=== PATIENT | female | born 1955 | race Two or more races ===

== ENCOUNTER 2019-03-04 03:00 | Inpatient (IN) | payer OTHER ==
[~2019-03-04] VITALS: Ht 157.5 cm; Wt 46.3 kg
[2019-03-04] VITALS (76 sets, daily range): BP systolic 55–139; BP diastolic 28–92
--- NOTE | 2019-03-04 03:03 | NUR ---
PT BIBRA39 FROM HOME C/O SOB X1 DAY. +WEAKNESS, PER RA, PT 88% ROOM AIR, BS 97, PT IS AAOX3, NOTED RESPIRATORY DISTRESS, HOOKED TO 02 VIA NON-REBREATHER MASK AND MONITOR, KEPT RESTED AND COMFORTABLE, WILL CONTINUE TO MONITOR.
--- NOTE | 2019-03-04 03:24 | NUR ---
DR. BRITT AT BEDSIDE FOR EVAL.
[2019-03-04] MEDS ORDERED: MYCO500T PO (03:26)
[2019-03-04] MEDS ORDERED: ALBU18HF2 INH (03:31)
[2019-03-04] MEDS ORDERED: CHOL20004 PO (03:31)
[2019-03-04] MEDS ORDERED: SODI650T PO (03:31)
[2019-03-04] MEDS ORDERED: CYCL30DR OP (03:31)
[2019-03-04] MEDS ORDERED: METO-356 PO (03:31)
[2019-03-04] MEDS ORDERED: FEBU40TA PO (03:31)
[2019-03-04] MEDS ORDERED: DILT-32 PO (03:31)
[2019-03-04] MEDS ORDERED: DILT180C66 PO (03:31)
[2019-03-04] MEDS ORDERED: PANT40TA4 PO (03:31)
[2019-03-04] MEDS ORDERED: APIX2.5T PO (03:31)
[2019-03-04] MEDS ORDERED: ATOR20TA PO (03:31)
--- NOTE | 2019-03-04 03:32 | NUR ---
RT AT BEDSIDE FOR ABG AND BIPAP SET UP.
[2019-03-04] MEDS ORDERED: DARB25DI SUBCUT (03:40)
[2019-03-04] MEDS ORDERED: PRED5TAB48 PO (03:40)
[2019-03-04] MEDS ORDERED: DEXTROSE 50%-WATER 50 ML DISP.SYRIN ONE (03:42)
[2019-03-04] MEDS ORDERED: DEXTROSE 50%-WATER 50 ML DISP.SYRIN IV ONE (04:00)
[2019-03-04] MEDS ORDERED: PIPERACILLIN /TAZOBACTAM 3.375 G in IV D5W 50 ML IV ONE (04:30)
[2019-03-04] MEDS ORDERED: VANCOMYCIN 1 GM in IV D5W 250 ML IV ONE (04:30)
[2019-03-04] MEDS ORDERED: IV NS 0.9% 1,000 ML BAG IV ONE ×2 (04:30)
[2019-03-04 04:32] LABS: CALCIUM, SERUM 7.1 mg/dL (8.5-10.1); POTASSIUM 4.2 mmol/L (3.5-5.1)
[2019-03-04 04:33] LABS: ALBUMIN 2.3 g/dL (3.4-5.0); BILIRUBIN,DIRECT 0.7 mg/dL (0.0-0.2); BILIRUBIN,TOTAL 1.2 mg/dL (0.2-1.0); CREATININE 1.6 mg/dL (0.6-1.3)
[2019-03-04] MEDS ORDERED: PIPERACILLIN /TAZOBACTAM 3.375 G VIAL IV ONE (04:35)
[2019-03-04 04:41] LABS: HEMATOCRIT 32 % (33-45); HEMOGLOBIN 9.7 g/dL (11.5-14.8); LYMPHOCYTES % (AUTO) 6.8 % (20.0-44.0); MEAN CORPUSCULAR HGB CONC 31 g/dl (31.0-36.0); MEAN CORPUSCULAR VOLUME 88 fL (82-100); MONOCYTES % (AUTO) 2.3 % (2.0-12.0); NEUTROPHILS % (AUTO) 90.5 % (43.0-81.0); PLATELET COUNT (AUTO) 177 /CMM (150-450); RED BLOOD CELL COUNT(AUTO) 3.56 MIL/uL (4.0-5.2); WHITE BLOOD COUNT (AUTO) 12.9 K/uL (4.3-11.0)
[2019-03-04] MEDS ORDERED: ALBUMIN 25% 50 ML IV ONE (04:41)
[2019-03-04 04:42] LABS: BASOPHILS % (AUTO) 0.4 % (0.0-2.0)
[2019-03-04] MEDS ORDERED: ALBUMIN 25% 12.5 GM/50 ML BOTTLE IV ONE (05:00)
--- NOTE | 2019-03-04 05:00 | NUR ---
WAGONER CATH INSERTED, URINE OUTPUT 300ML.
[2019-03-04] MEDS ORDERED: VANCOMYCIN 1 GM VIAL ONE (05:29)
[2019-03-04] MEDS ORDERED: NOREPINEPHRINE 4 MG/4 ML AMPUL IV ONE (05:29)
[2019-03-04] MEDS ORDERED: NOREPINEPHRINE 8 MG in IV D5W 500 ML IV ONE (05:30)
--- NOTE | 2019-03-04 05:43 | NUR ---
EPIC PANEL PAGED
--- NOTE | 2019-03-04 05:50 | NUR ---
RT AT BEDSIDE FOR REPEAT ABG.
--- NOTE | 2019-03-04 05:55 | NUR ---
PT IS PLACED ON A WARMING BLANKET.
--- NOTE | 2019-03-04 06:00 | NUR ---
PREP PATIENT FOR INTUBATION.
--- NOTE | 2019-03-04 06:05 | NUR ---
RT AT BEDSIDE FOR INTUBATION AND MECH VENT SET UP.
[2019-03-04] MEDS ORDERED: PROPOFOL 100 ML ONE (06:06)
--- NOTE | 2019-03-04 06:10 | NUR ---
ETOMIDATE 20MG IVP GIVEN VERBAL ORDERED BY .
--- NOTE | 2019-03-04 06:12 | NUR ---
SUCCINYLCHOLINE 50MG IVP GIVEN VERBAL ORDERED BY .
--- NOTE | 2019-03-04 06:13 | NUR ---
INTUBATION DONE, ET SIZE 7.5 AND 22 AT THE LIP, POSITIVE COLOR CHANGE.
--- NOTE | 2019-03-04 06:25 | NUR ---
SENIOR CYTOGENETIC TECHNOLOGIST AT BEDSIDE FOR XRAY.
[2019-03-04] MEDS ORDERED: ACETAMINOPHEN 650 MG/SUPP.RECT RC PRN (06:30)
[2019-03-04] MEDS ORDERED: ONDANSETRON HCL/PF 4 MG/2 ML VIAL IVP PRN (06:30)
--- NOTE | 2019-03-04 06:39 | NUR ---
CLAYTON (DAUGHTER) CONTACT INFORMATION: [phone]
--- NOTE | 2019-03-04 06:39 | NUR ---
PT ORALLY INTUBATED WITH 7.5 ETT AT 20CM ON THE LIP. BREATH SOUNDS EQUAL BILAT. TUBE SECURE AND PATENT. SX DONE. MODERATE AMOUNT OF PINK FROTHY SECRETIONS. PT ON MECHANICAL VENTILATION WITH NOTED SETTINGS AC 16, 450, 100% +5 AND APPEARS TO BE TOLERATING WELL. NO ADVERSE REACTION, NO SOB NOTED AT THIS TIME. VENT PLUGGED INTO RED OUTLET WHEELS LOCKED. AMBU BAG AT BEDSIDE. WILL CONTINUE TO MONITOR. Addendum: 03/04/19 at 0644 by DANIS BAUTISTA RT Amended: Links added.
--- NOTE | 2019-03-04 06:53 | NUR ---
PROPOFOL IV STARTED TITIRATE TO EFFECT.
--- NOTE | 2019-03-04 07:19 | NUR ---
REPORT GIVEN TO RN CYNDY FOR CHELLE, WITH ONGOING LEVOPHED AND PROPOFOL IV.
--- NOTE | 2019-03-04 07:40 | NUR ---
REPORT RECEIVED FROM ANDIA HINES RN. RT AT BEDSIDE FOR ABG POST INTUBATION.
[2019-03-04] MEDS ORDERED: ERGO500014 PO (07:42)
[2019-03-04] MEDS ORDERED: DILT30TA14 PO (07:42)
[2019-03-04] MEDS ORDERED: CYCL25CA6 PO (07:42)
--- NOTE | 2019-03-04 07:46 | NUR ---
PT. RECEIVED ON VENT SUPPORT VIA ET TUBE SIZE 7.5 SECURED @ 21 CM [id number]-[id number], WITH PARAMETERS BELOW: AC 16 VT 450 ML FIO2 100% PEEP +5 BREATH SOUNDS CLEAR BILATERAL, SUCTIONED SCANT CLEAR WATERY SECRETIONS. VENT ALARMS ON AND FUNCTIONING. WITH JACOBG @ BEDSIDE. Addendum: 03/04/19 at 0821 by YESSENIA PHILLIPS RT Amended: Links added.
--- NOTE | 2019-03-04 08:10 | NUR ---
transferred to ICU, ACLS guidelines followed - monitored - RN, RT, and EMT
--- NOTE | 2019-03-04 08:10 | NUR ---
NOTE: Intravenous end time: Propofol drip - infusing while transfer to ICU
--- NOTE | 2019-03-04 08:17 | NUR ---
PT. TRANSFERRED FROM ER#8 TO ICU 260 [facility] WITH NO VENTILATOR PARAMETERS ORDER. VENT PLUGGED INTO RED OUTLET WITH AMBUBAG @ BEDSIDE. Addendum: 03/04/19 at 0823 by YESSENIA PHILLIPS RT Amended: Links added.
[2019-03-04] MEDS ORDERED: FEE EMEERGENCY 1 MIN EA MC ONE (08:26)
[2019-03-04] MEDS ORDERED: ETOMIDATE 2 MG/ML VIAL IV ONE (08:26)
[2019-03-04] MEDS ORDERED: FEE PK DOSING 1 MIN EA MC ONE (08:40)
[2019-03-04] MEDS ORDERED: PANTOPRAZOLE 40 MG VIAL IV SCH (09:00)
[2019-03-04] MEDS ORDERED: MYCOPHENOLATE MOFETIL HCL IV SCH (09:00)
[2019-03-04] MEDS ORDERED: D5W IV SCH (09:00)
[2019-03-04] MEDS: ALLOPURINOL 100 MG TABLET GT SCH (09:00)
--- NOTE | 2019-03-04 09:00 | NUR ---
RN INITIAL NOTES 0830 RECEIVED PT FROM ER. PT INTUBATED, ON VENT. NO RESPIRATORY DISTRESS NOTED. NO SOB NOTED. NO SIGNS OF PAIN NOTED. PT SEDATED. ON DIPRIVAN AT 40MCG/KG/MIN. PT ON LEVOPHED AT 20MCG/MIN. WILL CLOSELY MONITOR BP. IV LINES IN PLACE. AWAITING FOR PICC INSERTION. FC IN PLACE, CLOUDY YELLOW URINE NOTED. NO HEMATURIA NOTED. RIVERA HARKINS DNP AWARE OF ADMISSION. AWAITING FOR ORDERS. 0900 SEEN AND EXAMINED BY DR TELLO. AWARE OF PT'S CONDITION, LAB VALUES, ABG AND IMAGING RESULT. ADJUSTED VENT SETTINGS. ORDERED ECHO AND BLE VENOUS DOPPLER. WILL MONITOR
[2019-03-04] MEDS: FAMOTIDINE/PF INJ 20 MG/2 ML VIAL IV SCH ×2 (09:59→16:33)
[2019-03-04] MEDS ORDERED: prednisoLONE 5 MG TABLET GT SCH (10:00)
[2019-03-04] MEDS ORDERED: PredniSONE SOLUTION 5 MG/5 ML UDC GT SCH (10:00)
[2019-03-04] MEDS ORDERED: predniSONE 5 MG TABLET PO SCH (10:00)
--- NOTE | 2019-03-04 11:00 | NUR ---
RN NOTES SEEN AND EXAMINED BY RIVERA HARKINS DNP. PT INTUBATED AND SEDATED. ON DIPRIVAN AND LEVOPHED. TITRATED ACCORDINGLY. Addendum: 03/04/19 at 1456 by YFN MACE RN CONTINUATION... 1130 RIVERA AWARE OF LAB VALUES: WBC 12.9, BUN 34, CREA 1.6. LACTIC 4.5 FROM 4.8, BNP [id number]. RIVERA PLACED RIJ TLC, PLACEMENT CONFIRMED BY CXR. CONNECTED ON CVP, READING AT 7. WILL CONTINUE TO MONITOR
[2019-03-04] MEDS: NOREPINEPHRINE 16 MG in IV D5W 500 ML IV PRN ×2 (11:22→18:57)
[2019-03-04] MEDS ORDERED: DEXAMETHASONE SOD PHOSPHATE 10 MG/ML VIAL IV STA (11:37)
[2019-03-04] MEDS: PROPOFOL 100 ML IV PRN ×2 (11:49→18:21)
[2019-03-04] MEDS: HYDROCORTISONE SOD SUCCINATE 100 MG/2 ML VIAL IV SCH ×2 (12:36→16:33)
[2019-03-04] MEDS ORDERED: PIPERACILLIN /TAZOBACTAM 3.375 G in IV D5W 100 ML IV SCH (13:00)
[2019-03-04 13:02] LABS: ABG BASE EXCESS -13.3 mmol/L; ABG OXYGEN SATURATION 90.6 % (92.0-98.5); ABG PCO2 28.5 mmHg (35.0-45.0); ABG PH 7.259 (7.350-7.450); ABG PO2 71.3 mmHg (75.0-100.0); AaDO2 469.2 mmHg; COHb 0.6 % (0.5-1.5); MetHb 0.2 % (0.0-1.5); O2Hb 89.9 % (94.0-97.0); PEEP,BG 8 cm H2O; SITE, ABG Right Radial; VT, ABG 500 mL
[2019-03-04 13:03] LABS: ABG BASE EXCESS -12.9 mmol/L; ABG OXYGEN SATURATION 87.7 % (92.0-98.5); ABG PCO2 43.6 mmHg (35.0-45.0); ABG PH 7.158 (7.350-7.450); ABG PO2 72.1 mmHg (75.0-100.0); AaDO2 597.3 mmHg; COHb 0.7 % (0.5-1.5); MetHb 0.1 % (0.0-1.5); PEEP,BG 8 cm H2O; SITE, ABG Right Radial; VT, ABG 450 mL
[2019-03-04 13:03] LABS: ABG BASE EXCESS -12.7 mmol/L; ABG OXYGEN SATURATION 88.1 % (92.0-98.5); ABG PCO2 29.2 mmHg (35.0-45.0); ABG PH 7.268 (7.350-7.450); ABG PO2 67.7 mmHg (75.0-100.0); AaDO2 616.1 mmHg; COHb 0.7 % (0.5-1.5); MetHb 0.3 % (0.0-1.5); O2Hb 87.2 % (94.0-97.0); PEEP,BG 8 cm H2O; SITE, ABG Left Radial; VENT MODE, BG ST
[2019-03-04 13:03] LABS: ABG BASE EXCESS -10.4 mmol/L; ABG OXYGEN SATURATION 64.1 % (92.0-98.5); ABG PCO2 30.1 mmHg (35.0-45.0); ABG PH 7.308 (7.350-7.450); ABG PO2 37.1 mmHg (75.0-100.0); AaDO2 645.8 mmHg; COHb 1.2 % (0.5-1.5); MetHb 0.4 % (0.0-1.5); O2Hb 63.1 % (94.0-97.0); SITE, ABG Left Radial; VENT MODE, BG NON REBREATHER
[2019-03-04] MEDS: MICAFUNGIN SODIUM 100 MG in IV NS 0.9% 100 ML IV SCH (13:09)
[2019-03-04] MEDS: LEVOFLOXACIN (250MG) 250 MG TABLET PO SCH (14:23)
[2019-03-04] MEDS: SULFAMETHOXAZOLE/TRIMETHOPRIM 5 ML in IV D5W 250 ML IV SCH ×2 (14:30→23:40)
--- NOTE | 2019-03-04 14:30 | NUR ---
RN NOTES RIVERA HARKINS,HUDSON NOTIFIED OF BILATERAL VENOUS DOPPLER RESULT, POSITIVE DVT ON BILATERAL FEMORAL AND SAPHENOUS VEIN. HEPARIN DRIP ORDERED. WILL FOLLOW PROTOCOL.
[2019-03-04 15:22] LABS: ABG OXYGEN SATURATION 92.4 % (92.0-98.5); ABG PCO2 28.6 mmHg (35.0-45.0); ABG PH 7.308 (7.350-7.450); ABG PO2 73.8 mmHg (75.0-100.0); AaDO2 466.6 mmHg; COHb 0.5 % (0.5-1.5); MetHb 0.2 % (0.0-1.5); O2Hb 91.8 % (94.0-97.0); PEEP,BG 8 cm H2O; SITE, ABG Right Radial; VT, ABG 500 mL
[2019-03-04] MEDS: HEPARIN INFUSION/D5W 500 ML IV PRN (16:02)
[2019-03-04] MEDS: MYCOPHENOLATE MOFETIL SUSP 500 MG/2.5 ML UDC GT SCH (16:34)
--- NOTE | 2019-03-04 18:50 | NUR ---
RN CLOSING NOTES PT REMAINS INTUBATED, ON VENT. ON DIPRIVAN AND LEVOPHED, TITRATED ACCORDINGLY. ON HEPARIN DRIP, NEXT PTT AT 2145. KEPT CLEAN AND DRY. REPOSITIONED Q2. KEPT BLE ELEVATED. WILL ENDORSE FOR CONTINUITY OF CARE.
--- NOTE | 2019-03-04 19:00 | NUR ---
RECEIVED PT IN NO ACUTE DISTRESS IN BED. PT IS SEDATED BUT WITHDRAWS TO PAINFUL STIMULI. PT IS ON O2 VIA MECHANICAL VENTILATOR THROUGH ETT TUBE. ETT IS 7.5/22 AND TOLERATING VENT SETTING WELL @ AC 26 TV 500 FIO2 80 PEEP 8. PT HAS OGTUBE THAT IS CLEAN DRY INTACT AND PATENT WITH FREE WATER FLUSH. PT IS ON TELE WITH SR ON THE MONITOR. PT HAS FC THAT IS CLEAN DRY INTACT AND PATENT WITH YELLOW URINE DRAINING. PT IS ON BILATERAL SOFT WRIST RESTRAINTS WITH FREQUENT PULSE CHECKS. PT HAS RAC 18G THAT IS CLEAN DRY INTACT AND PATENT WITH NS @ TKO. PT HAS RFA 20G THAT IS CLEAN DRY INTACT AND PATENT WITH SALINE LOCK. PT HAS RIGHT IJ TLC THAT IS CLEAN DRY INTACT AND PATENT WITH HEPARIN DRIP, LEVO @ 28 MCG, PROPOFOL @ 40 MCG. BED IN LOW LOCK POSITION WITH RAILS UP X 2. CALL LIGHT WITHIN REACH AND ALL SAFETY MEASURES ENSURED AND CARRIED OUT. WILL CONTINUE TO MONITOR PT.
--- NOTE | 2019-03-04 19:40 | NUR ---
RT NOTE PATIENT RECEIVED INTUBATED ON MECHANICAL VENTILATION WITH 7.5 ET TUBE @ 20 LEFT LIP LINE. CUFF CHECKED VIA FLUID JET CUTTER OPERATOR. AMBU BAG @ BEDSIDE. VENT PLUGGED TO RED OUTLET. ALARMS ON AND AUDIBLE. SX DONE, ET TUBE SECURED AND PATENT. SMALL THICK WHITE/YELLOW SECRETIONS NOTED. WILL MONITOR T/O SHIFT. NO DISTRESS NOTED. Addendum: 03/04/19 at 1942 by NOLBERTO VALENTINE RT Amended: Links added.
--- NOTE | 2019-03-04 20:00 | NUR ---
PT RECTAL TEMP IS 101.1. COOLING MEASURES INITIATED WITH TYLENOL SUPPOSITORY, ICE PACKS PLACED IN AUXILIARY, AND FAN. WILL CONTINUE TO MONITOR.
[2019-03-04] MEDS: CEFEPIME 1 GM in IV D5W 50 ML IV SCH (21:05)
--- NOTE | 2019-03-04 23:45 | NUR ---
RECEIVED APTT VALUE OF 150.1. NOTIFIED BATCH UNLOADER . AWAITING RESPONSE.
[2019-03-05] VITALS (105 sets, daily range): BP systolic 78–168; BP diastolic 53–89
[2019-03-05] MEDS ORDERED: VANCOMYCIN 500 MG in IV D5W 100 ML IV SCH ×2
--- NOTE | 2019-03-05 | NUR ---
PT TEMP IS NOW 97.4 AFTER COOLING MEASURES. COOLING MEASURES DISCONTINUED DUE TO NORMALIZE TEMPERATURE. WILL CONTINUE TO MONITOR.
--- NOTE | 2019-03-05 | NUR ---
PER EVENT PLANNER MD ORDERS TO HOLD FOR AN HOUR, THEN DECREASE BY 3 UNITS/KG/HR= 130 UNITS/HR. READ BACK ORDERS PERFORMED AND CARRIED OUT.
--- NOTE | 2019-03-05 01:00 | NUR ---
RESTARTED HEPARIN DRIP PER ORDERS AND DECREASED BY 130 UNITS/HR WITH NEW INFUSION RATE @ 620 UNIT/HR. PER PROTOCOL ORDERED NEXT PTT @ 0600.
[2019-03-05] MEDS: PROPOFOL 100 ML IV PRN ×3 (03:33→20:58)
[2019-03-05] MEDS: NOREPINEPHRINE 16 MG in IV D5W 500 ML IV PRN ×2 (04:23→22:54)
[2019-03-05 05:02] LABS: BASOPHILS % (AUTO) 0.1 % (0.0-2.0); HEMATOCRIT 30 % (33-45); HEMOGLOBIN 9.6 g/dL (11.5-14.8); LYMPHOCYTES # (AUTO) 0.3 /CMM (0.8-4.8); LYMPHOCYTES % (AUTO) 1.3 % (20.0-44.0); MEAN CORPUSCULAR HGB CONC 32 g/dl (31.0-36.0); MEAN CORPUSCULAR VOLUME 87 fL (82-100); MONOCYTES # (AUTO) 0.4 /CMM (0.1-1.30); MONOCYTES % (AUTO) 2.1 % (2.0-12.0); NEUTROPHILS # (AUTO) 18.6 /CMM (1.8-8.9); NEUTROPHILS % (AUTO) 96.5 % (43.0-81.0); PLATELET COUNT (AUTO) 149 /CMM (150-450); RED BLOOD CELL COUNT(AUTO) 3.48 MIL/uL (4.0-5.2); WHITE BLOOD COUNT (AUTO) 19.3 K/uL (4.3-11.0)
[2019-03-05 05:24] LABS: ALANINE AMINOTRANSFERASE 63 U/L (12-78); ALKALINE PHOSPHATASE 74 U/L (46-116); ASPARTATE AMINOTRANSFERASE 45 U/L (15-37); CALCIUM, SERUM 6.2 mg/dL (8.5-10.1); CARBON DIOXIDE 13 mmol/L (21-32); CHLORIDE 98 mmol/L (98-107); CREATININE 2.4 mg/dL (0.6-1.3); GLUCOSE 159 mg/dL (74-106); MAGNESIUM 1.3 mg/dL (1.8-2.4); PHOSPHORUS 5.8 mg/dL (2.5-4.9); POTASSIUM 5.2 mmol/L (3.5-5.1); SODIUM SERUM 128 mmol/L (136-145); TOTAL PROTEIN, SERUM 4.9 g/dL (6.4-8.2); UREA NITROGEN, BLOOD 42 mg/dL (7-18)
[2019-03-05 05:33] LABS: HDL CHOLESTEROL 11 mg/dL (40-60); TRIGLYCERIDES 47 mg/dL (30-150)
[2019-03-05 05:43] LABS: LDL < 5 mg/dL (0-99)
[2019-03-05 05:44] LABS: CHOLESTEROL < 50 mg/dL (<200)
[2019-03-05] MEDS: MYCOPHENOLATE MOFETIL SUSP 500 MG/2.5 ML UDC GT SCH ×2 (06:33→16:49)
--- NOTE | 2019-03-05 07:45 | NUR ---
ICU/BOW MAKER CUSTOM RECEIVED REPORT FROM NIGHT NURSE. SEE FLOWSHEET FOR ASSESSMENT ALONG WITH SKIN ISSUES AND EACH INTERVENTIONS TO THESE. PT CURRENTLY HAS MANY IV DRIPS WHICH ARE ADDRESSED IN THE IV SPREAD SHEET ALONG WITH ANY TITRATIONS WHICH MAY HAVE BEEN DONE. PT WAS WAS TUNED AND REPOSITIONED FOR COMFORT AND CARE. NO ACUTE DISTRESS SEEN AT THIS TIME. WILL CONTINUE TO MONITOR THIS PT.
--- NOTE | 2019-03-05 07:45 | NUR ---
ICU/CORRECTIONS NURSE CALLED PHARMACY ABOUT IVPB BACTRIM, DUE AT 0700 SAID IT WILL BE UP SHORTLY AFTER MIXING
--- NOTE | 2019-03-05 07:52 | NUR ---
RT NOTE PATIENT RECEIVED INTUBATED ON MECHANICAL VENTILATION WITH 7.5 ET TUBE @ 20 LEFT LIP LINE. CUFF CHECKED VIA SPRAY GUNNER. AMBU BAG @ BEDSIDE. VENT PLUGGED TO RED OUTLET. ALARMS ON AND AUDIBLE. SX DONE, ET TUBE SECURED AND PATENT. SMALL THICK WHITE/YELLOW SECRETIONS NOTED. WILL MONITOR T/O SHIFT. NO DISTRESS NOTED.
[2019-03-05] MEDS ORDERED: SULFAMETHOXAZOLE/TRIMETHOPRIM 5 ML in IV D5W 250 ML IV SCH (08:00)
--- NOTE | 2019-03-05 08:10 | NUR ---
ICU/CANE PACKER IVPB BACTRIM UP AND WAS RESCHEDULED THEN ALSO AT THIS TIME PHARMACY ASKED WHAT WAS THE REASON FOR GIVING IT. EXPLAINED WHY THEN WAS RESCHEDULED AND REDOSED ACCORDINGLY.
--- NOTE | 2019-03-05 08:20 | NUR ---
ICU/THREADER LAB AFTER MANY ATTEMPTS TO OBTAINED PTT. FINALLY PTT IS 104.3. PER THE PROTOCOL HEPARIN DRIP WAS STOPPED FOR 1 HOUR. PTT IS FOR 6 HRS FROM NOW AT 1230.
[2019-03-05 08:41] LABS: ABG BASE EXCESS -12.2 mmol/L; ABG OXYGEN SATURATION 98.6 % (92.0-98.5); ABG PCO2 25.4 mmHg (35.0-45.0); ABG PH 7.313 (7.350-7.450); ABG PO2 258.3 mmHg (75.0-100.0); AaDO2 285.4 mmHg; COHb 0.2 % (0.5-1.5); MetHb 0.2 % (0.0-1.5); O2Hb 98.2 % (94.0-97.0); PEEP,BG 8 cm H2O; SITE, ABG Left Brachial
[2019-03-05] MEDS: HYDROCORTISONE SOD SUCCINATE 100 MG/2 ML VIAL IV SCH ×3 (08:47→16:48)
[2019-03-05] MEDS: FAMOTIDINE/PF INJ 20 MG/2 ML VIAL IV SCH ×2 (08:47→16:48)
[2019-03-05] MEDS ORDERED: prednisoLONE 5 MG TABLET GT SCH (09:00)
[2019-03-05] MEDS: ALLOPURINOL 100 MG TABLET GT SCH (09:00)
--- NOTE | 2019-03-05 09:00 | NUR ---
ICU/SERGEANT OF OFFICERS AM ABG WAS DONE DR TELLO WAS AWARE AND MADE CHANGED ACCORDINGLY. WILL CONTINUE TO MONITOR THIS PT AND HER SATURATION.FIO2 WAS 80 TO NOW 50. PEEP WAS 8 TO 5.
[2019-03-05] MEDS: CEFEPIME 1 GM in IV D5W 50 ML IV SCH ×2 (09:30→21:09)
--- NOTE | 2019-03-05 09:30 | NUR ---
ICU/OFFSET PRESS OPERATOR APPRENTICE HEPARIN WAS RESTARTED AT THE NEW RATE 620 UNITS-130 OOGIY=118 UNITS. NEXT PTT IS IN 6 HRS . PT WILL BE CLOSELY MONITORED.
--- NOTE | 2019-03-05 10:10 | NUR ---
ICU/NEGATIVE NOTCHER BLOOD PRESSURE IS 120'S TROUGH A FEW CYCLES, MADE CHARGE NURSE AWARE WHO THEN DECREASED LEVO TO 14MCG FROM 16. WILL CONTINUE TO MONITOR THIS PT AND HER BP. PT AT THIS TIME WAS TUNED AND REPOSITIONED FOR COMFORT AND CARE.
[2019-03-05] MEDS: Magnesium 1GM/D5W 100ML PREMIX 100 ML IV SCH ×2 (10:59→11:14)
[2019-03-05 11:13] LABS: *BASOS 0 % (Not Estab.); *COMMENTS Note: (.); *EOS 0 % (Not Estab.); *HCT 29.4 % (34.0-46.6); *HGB 9.4 g/dL (11.1-15.9); *LYMPHOCYTES 2 % (Not Estab.); *LYMPHS, ABSOLUTE 0.3 x10E3/uL (0.7-3.1); *MCH 26.6 pg (26.6-33.0); *MCV 83 fL (79-97); *MONOCYTES 3 % (Not Estab.); *MONOS, ABSOLUTE 0.5 x10E3/uL (0.1-0.9); *NEUTROPHILS 72 % (Not Estab.); *NEUTROPHILS, ABSOLUTE 14.6 x10E3/uL (1.4-7.0); *PLT 184 x10E3/uL (150-450); *RBC 3.53 x10E6/uL (3.77-5.28); *RDW 16.1 % (12.3-15.4)
--- NOTE | 2019-03-05 11:20 | NUR ---
ICU/PRESS SHOP SUPERVISOR PT'S FAMILY AT BEDSIDE, WHO WERE ABLE TO TALK TO THE DR AND ASK QUESTIONS.
--- NOTE | 2019-03-05 12:10 | NUR ---
ICU/DEPUTY FIRE MARSHAL BLOOD PRESSURE IS 120'S TROUGH A FEW CYCLES, MADE CHARGE NURSE AWARE WHO THEN DECREASED LEVO TO 12MCG FROM 14. WILL CONTINUE TO MONITOR THIS PT AND HER BP. PT AT THIS TIME WAS TUNED AND REPOSITIONED FOR COMFORT AND CARE. WILL CONTINUE TO MONITOR THIS PT.
[2019-03-05] MEDS: BLOOD SUGAR DIAGNOSTIC 1 EACH STRIP IN SCH ×2 (12:17→19:00)
--- NOTE | 2019-03-05 13:00 | NUR ---
ENDORSED REPORT FROM JESSICA MARTINEZ FOR CONTINUITY OF CARE. PT REMAINS IN NO ACUTE DISTRESS IN BED. PT TOLERATING VENT SETTING WELL. ALL VITALS WNL. WILL CONTINUE TO MONITOR PT.
[2019-03-05 13:09] LABS: *% CD 4 POS. LYMPH 28.6 % (30.8-58.5); *% CD 8 POS. LYMPH 23.7 % (12.0-35.5); *ABSOLUTE CD 4 HELPER 86 /uL (359-1519); *ABSOLUTE CD 8 SUPPRESSOR 71 /uL (109-897); *CD4/CD8 RATIO 1.21 (0.92-3.72)
[2019-03-05] MEDS: MICAFUNGIN SODIUM 100 MG in IV NS 0.9% 100 ML IV SCH (13:23)
--- NOTE | 2019-03-05 14:45 | NUR ---
RECEIVED PTT 92.3 WILL STOP HEPARIN INFUSION FOR 1 HOUR AND RESTART WITH DECREASE IN UNITS/HR BY 130 UNITS PER PROTOCOL.
[2019-03-05] MEDS: IV NS 0.9% 1,000 ML IV PRN (14:55)
[2019-03-05] MEDS: SULFAMETHOXAZOLE/TRIMETHOPRIM 10 ML in IV D5W 250 ML IV SCH (16:49)
[2019-03-05] MEDS: ALBUMIN 25% 25 GM in PREMIX 1 EA IV SCH ×2 (16:50→21:09)
--- NOTE | 2019-03-05 20:08 | NUR ---
PT REC'D ORALLY INTUBATED VIA ETT 7.5 SECURED @ 22 CM [facility] THE [facility] WITH NOTED SETTINGS. PT IS SEDATED. SX'D MODERATE AMT SMALL YELLOW/SOMERS THICK SECRETIONS. NO RESP DISTRESS OR SOB NOTED. ALARMS ARE SET AND AUDIBLE. VENT PLUGGED INTO RED OUTLET. AMBU BAG @ BEDSIDE. WILL CONTINUE TO MONITOR.
--- NOTE | 2019-03-05 22:18 | NUR ---
RECEIVED PTT 90.6 PER PROTOCOL WILL DECREASE HEPARIN DRIP BY 80 UNITS/HR AND RECHECK PTT IN 6 HRS.
[2019-03-06] VITALS (103 sets, daily range): BP systolic 82–133; BP diastolic 57–90
--- NOTE | 2019-03-06 | NUR ---
BROOMCORN SORTER PT APPEARS VERY SEDATED TITRATED DIPRIVAN PER PROTOCOL; NOW AT 25 MCG/KG/MIN. CONTINUE TO MONITOR.
[2019-03-06] MEDS: SULFAMETHOXAZOLE/TRIMETHOPRIM 10 ML in IV D5W 250 ML IV SCH ×3 (00:30→17:59)
[2019-03-06] MEDS: BLOOD SUGAR DIAGNOSTIC 1 EACH STRIP IN SCH ×4 (00:31→18:00)
[2019-03-06] MEDS: PROPOFOL 100 ML IV PRN ×2 (03:40→12:18)
[2019-03-06] MEDS: ALBUMIN 25% 25 GM in PREMIX 1 EA IV SCH ×2 (03:41→09:25)
[2019-03-06 04:51] LABS: CALCIUM, SERUM 6.2 mg/dL (8.5-10.1); CREATININE 2.8 mg/dL (0.6-1.3); POTASSIUM 4.8 mmol/L (3.5-5.1)
[2019-03-06 04:56] LABS: BASOPHILS % (AUTO) 0.3 % (0.0-2.0); HEMATOCRIT 22 % (33-45); HEMOGLOBIN 7.1 g/dL (11.5-14.8); LYMPHOCYTES # (AUTO) 0.3 /CMM (0.8-4.8); LYMPHOCYTES % (AUTO) 2.4 % (20.0-44.0); MEAN CORPUSCULAR HGB CONC 32 g/dl (31.0-36.0); MEAN CORPUSCULAR VOLUME 84 fL (82-100); MONOCYTES # (AUTO) 0.6 /CMM (0.1-1.30); MONOCYTES % (AUTO) 4.2 % (2.0-12.0); NEUTROPHILS # (AUTO) 12.3 /CMM (1.8-8.9); NEUTROPHILS % (AUTO) 93.1 % (43.0-81.0); PLATELET COUNT (AUTO) 96 /CMM (150-450); WHITE BLOOD COUNT (AUTO) 13.3 K/uL (4.3-11.0)
--- NOTE | 2019-03-06 05:27 | NUR ---
RECEIVED PTT RESULTS 77.1 AND PER PROTOCOL WILL REDUCE INFUSION BY 80 UNITS/HR. PT NOW HAS HEPARIN RUNNING @ 200 UNITS/HR. WILL RECHECK PTT IN 6 HOURS.
[2019-03-06 06:06] LABS: LYMPHOCYTES % (MANUAL) 3 % (16-48); MONOCYTES % (MANUAL) 3 % (0-11.0); NEUTROPHILS % (MANUAL) 94 (42-76)
[2019-03-06] MEDS: MYCOPHENOLATE MOFETIL SUSP 500 MG/2.5 ML UDC GT SCH ×2 (06:46→18:02)
[2019-03-06] MEDS: IV NS 0.9% 1,000 ML IV PRN (06:54)
--- NOTE | 2019-03-06 06:58 | NUR ---
PT REMAINS IN NO ACUTE DISTRESS IN BED. PT DID NOT HAVE ANY SIGNIFICANT CHANGE IN CONDITION DURING SHIFT. ALL NEEDS MET, ALL ORDERS CARRIED OUT. PT TOLERATED VENT SETTING WELL. WILL ENDORSE CARE TO AM RN FOR CONTINUITY OF CARE.
--- NOTE | 2019-03-06 07:44 | NUR ---
RT NOTE RECEIVED PT MECHANICALLY VENTILATED VIA 7.5 ETT 20 CM @ LIP. CUFF INFLATED. ETT SECURE. SMALL THIN PALE YELLOW SECRETIONS FOUND UPON SUCTION. VENTILATOR SETTINGS PRESCRIBED. ALARMS SET PER PROTOCOL AND AUDIBLE. VENT PLUGGED IN TO RED OUTLET. AMBU BAG AT BED SIDE. NO DISTRESS NOTED AT MOMENT. Addendum: 03/06/19 at 0747 by JAXON GARCIA RT Amended: Links added.
[2019-03-06 08:45] LABS: ABG BASE EXCESS -13.4 mmol/L; ABG OXYGEN SATURATION 97.7 % (92.0-98.5); ABG PCO2 21.6 mmHg (35.0-45.0); ABG PH 7.332 (7.350-7.450); ABG PO2 143.8 mmHg (75.0-100.0); AaDO2 188.4 mmHg; COHb 0.6 % (0.5-1.5); MetHb 0.3 % (0.0-1.5); O2Hb 96.8 % (94.0-97.0); SITE, ABG Left Radial; VENT MODE, BG AC 26 500 50% +5
[2019-03-06] MEDS: CEFEPIME 1 GM in IV D5W 50 ML IV SCH ×2 (09:08→21:15)
[2019-03-06] MEDS: HYDROCORTISONE SOD SUCCINATE 100 MG/2 ML VIAL IV SCH ×3 (09:09→17:59)
[2019-03-06] MEDS: ALLOPURINOL 100 MG TABLET GT SCH (09:09)
[2019-03-06] MEDS: FAMOTIDINE/PF INJ 20 MG/2 ML VIAL IV SCH ×2 (09:09→17:59)
[2019-03-06] MEDS ORDERED: LIDOCAINE 2% JEL 5 ML TUBE MC ONE (11:30)
[2019-03-06] MEDS: HEPARIN INFUSION/D5W 500 ML IV PRN (12:42)
[2019-03-06] MEDS: MICAFUNGIN SODIUM 100 MG in IV NS 0.9% 100 ML IV SCH (13:10)
[2019-03-06] MEDS: LEVOFLOXACIN (250MG) 250 MG TABLET PO SCH (13:11)
[2019-03-06] MEDS ORDERED: D5W IV SCH (20:00)
[2019-03-06] MEDS ORDERED: PENTAMIDINE ISETHIONATE IV SCH (20:00)
[2019-03-06] MEDS ORDERED: CLINDAMYCIN IV RTU IN D5W 900 MG/50 ML PIGGYBACK IV SCH (20:00)
--- NOTE | 2019-03-06 20:05 | NUR ---
RT NOTE PATIENT RECEIVED INTUBATED WITH 7.5 ET TUBE SIZE @ 20CM RIGHT LIP LINE. CUFF CHECKED VIA CLEANER ASSISTANT. VENT PLUGGED TO RED OUTLET. ALARMS ON AND AUDIBLE. SX DONE, SMALL THICK SOMERS SECRETIONS NOTED. ALARMS ON AND AUDIBLE. WILL MONITOR T/O SHIFT. Addendum: 03/07/19 at 0211 by NOLBERTO VALENTINE RT Amended: Links added.
--- NOTE | 2019-03-06 20:10 | NUR ---
EASEMENT WORKER DURING REPORT PTT RESULTS PENDING FOR HEPARIN DRIP WHICH WAS RUNNING AT 120 UNITS/HR. TURNED HEPARIN DRIP OFF AT THIS TIME; PER ORDER HEPARIN WAS DCD AT 1305. CONTINUE TO MONITOR.
--- NOTE | 2019-03-06 21:15 | NUR ---
GLOBAL COMMODITY MANAGER S/W PHARMACY REGARDING PENTAMIDINE MEDICATION; PER PHARMACY CAREFULLY MONITOR PT THIS IS THE FIRST TIME PT IS RECEIVING THIS MEDICATION; ALSO NOTED PT SB <90 (PER MD KEEP MAP >65) AND SIDE EFFECT OF THIS MEDICATION IS HYPOTENSION; PHARMACY SUGGESTED S/W MD AND CLARIFY IF MED SHOULD BE GIVEN; S/W MARILYN DO W/ORDERS TO HOLD MEDICATION UNTIL SBP >100. EXPLAINED TO PT DAUGHTER GORDON GRISSOM ABOUT MEDICATION AND S/S OF ADVERSE REACTIONS.
[2019-03-06 21:28] LABS: HEMOGLOBIN 6.2 g/dL (11.5-14.8)
--- NOTE | 2019-03-06 21:40 | NUR ---
DIRECTOR OF CHANNEL MARKETING NOTED IN DR WARNER'S NOTES TO TRANSFUSE ONE UNIT PRBC; PRBC ORDERED BY MD. DURING REPORT IT WAS NOT ENDORSED THAT PT WAS TO RECEIVE BLOOD TRANSFUSION. PER BLOOD BANK PRBC READY SINCE 1500. HH 7.10/28 DURING AM LAB DRAW. S/W DR SANDERS WHO ORDERED STAT HH W/RESULTS 6.11/25; RCD ORDER FROM DR SANDERS TO TRANSFUSE ONE UNIT PRBC. OBTAINED CONSENT FROM DAUGHTER GORDON GRISSOM NAINA.
[2019-03-06] MEDS: CLINDAMYCIN 600 MG in IV D5W 50 ML IV SCH (21:45)
[2019-03-07] VITALS (59 sets, daily range): BP systolic 83–112; BP diastolic 58–78
--- NOTE | 2019-03-07 00:48 | NUR ---
CONTRACTING ANALYST BLOOD GLUCOSE 68; NO INSULIN COVERAGE NEEDED. CONTINUE TO MONITOR.
[2019-03-07] MEDS: BLOOD SUGAR DIAGNOSTIC 1 EACH STRIP IN SCH ×5 (00:49→23:49)
--- NOTE | 2019-03-07 01:15 | NUR ---
SPECIAL MACHINE OPERATOR PT TOLERATED ONE UNIT PRBC TRANSFUSION; CONTINUE TO MONITOR.
--- NOTE | 2019-03-07 01:30 | NUR ---
ADVANCED NURSING PROFESSOR PENTAMIDINE STARTED; MONITOR FOR ANY ADVERSE REACTIONS. Addendum: 03/07/19 at 0319 by VANNESSA PICKERING RN SBP > 100
[2019-03-07] MEDS: PROPOFOL 100 ML IV PRN ×2 (01:31→13:56)
[2019-03-07] MEDS: CLINDAMYCIN 600 MG in IV D5W 50 ML IV SCH ×3 (04:30→20:35)
--- NOTE | 2019-03-07 05:14 | NUR ---
CATALYTIC CASE OPERATOR DESPITE PT BEING TURNED AND REPOSITIONED Q2HRS AND MEPILEX IN PLACE; SACRAL AREA NOTED TO HAVE INCREASED REDNESS. CONTINUE TO MONITOR.
[2019-03-07 05:23] LABS: HEMATOCRIT 24 % (33-45); HEMOGLOBIN 7.9 g/dL (11.5-14.8); LYMPHOCYTES # (AUTO) 0.2 /CMM (0.8-4.8); LYMPHOCYTES % (AUTO) 2.2 % (20.0-44.0); MEAN CORPUSCULAR HGB CONC 33 g/dl (31.0-36.0); MEAN CORPUSCULAR VOLUME 84 fL (82-100); MONOCYTES # (AUTO) 0.6 /CMM (0.1-1.30); MONOCYTES % (AUTO) 5.3 % (2.0-12.0); NEUTROPHILS # (AUTO) 9.8 /CMM (1.8-8.9); NEUTROPHILS % (AUTO) 92.5 % (43.0-81.0); PLATELET COUNT (AUTO) 66 /CMM (150-450); RED BLOOD CELL COUNT(AUTO) 2.81 MIL/uL (4.0-5.2); WHITE BLOOD COUNT (AUTO) 10.6 K/uL (4.3-11.0)
[2019-03-07 05:29] LABS: MAGNESIUM 1.9 mg/dL (1.8-2.4); PHOSPHORUS 7.2 mg/dL (2.5-4.9); POTASSIUM 4.8 mmol/L (3.5-5.1)
[2019-03-07 05:54] LABS: CALCIUM, SERUM 5.9 mg/dL (8.5-10.1)
[2019-03-07] MEDS: IV NS 0.9% 1,000 ML IV PRN (06:01)
[2019-03-07 06:13] LABS: LYMPHOCYTES % (MANUAL) 3 % (16-48); MONOCYTES % (MANUAL) 5 % (0-11.0); NEUTROPHILS % (MANUAL) 92 (42-76)
--- NOTE | 2019-03-07 07:20 | NUR ---
RT Pt received orally intubated with a 7.5 ETT secured at 20cm at the lip line. Pt is currently sedated at this time but responds to stimuli when sx'd. Vent alarms are set and audible with BVM by bedside. DIRECTOR LOSS PREVENTION cuff pressure noted. Vent is plugged into red outlet. Sx'd blood tinged thick secretions. No respiratory distress noted at this time. Addendum: 03/07/19 at 1713 by DOUGIE CORDERO RT Amended: Links added.
--- NOTE | 2019-03-07 07:30 | NUR ---
RN NOTE: RECEIVED PATIENT IN BED, INTUBATED AND SEDATED. ET TUBE SIZE 7.5 AND WAS ATTACHED TO THE LIP @22CM. CURRENT MECHANICAL VENTILATOR SETTING AC=26 AM=309 FIO2=50% AND PEEP=5. PATIENT NOTED WITH (R) IJ TRIPLE LUMEN CATHETER INFUSING DIPRIVAN @25MCG. (R) FA 20G WAS INFUSING NS@75ML/HR. OROGASTRIC TUBE CLAMPED. WAGONER CATHETER IN PLACED NOTED WITH SMALL AMOUNT OF YELLOW URINE DRAINING TO GRAVITY. BED ALARMED AND LOCKED AT ALL TIMES. CALL LIGHT WITHIN REACH. NEEDS ANTICIPATED.
--- NOTE | 2019-03-07 07:35 | NUR ---
RN NOTE: INITIAL CVP READING WAS 11.
[2019-03-07] MEDS: ALLOPURINOL 100 MG TABLET GT SCH (08:20)
[2019-03-07] MEDS: CEFEPIME 1 GM in IV D5W 50 ML IV SCH ×2 (08:20→21:08)
[2019-03-07] MEDS: HYDROCORTISONE SOD SUCCINATE 100 MG/2 ML VIAL IV SCH ×3 (08:20→16:30)
[2019-03-07] MEDS: FAMOTIDINE/PF INJ 20 MG/2 ML VIAL IV SCH ×2 (08:20→16:30)
[2019-03-07 08:31] LABS: ABG BASE EXCESS -15.8 mmol/L; ABG PCO2 19.7 mmHg (35.0-45.0); ABG PH 7.284 (7.350-7.450); ABG PO2 124.4 mmHg (75.0-100.0); AaDO2 209.9 mmHg; COHb 0.6 % (0.5-1.5); MetHb 0.4 % (0.0-1.5); PEEP,BG 5 cm H2O; SITE, ABG Left Brachial; VT, ABG 500 mL
[2019-03-07] MEDS ORDERED: PRIMAQUINE 15 MG TABLET PO SCH ×2 (09:00)
[2019-03-07] MEDS: MYCOPHENOLATE MOFETIL SUSP 500 MG/2.5 ML UDC GT SCH ×2 (09:28→16:30)
--- NOTE | 2019-03-07 09:30 | NUR ---
RN NOTE: DR. WARNER PRESENT IN THE UNIT AND WAS GIVEN AN UPDATE REGARDING THE PATIENT'S CONDITION. MD WAS AWARE OF THE ABG RESULT AND WANTED THE RESULT TO BE RELAYED TO THE QUILL SKINNER. NO ORDER GIVEN AT THIS TIME. AWAITING FOR THE QUILL SKINNER ASSIGNED FOR TODAY. PATIENT REMAINED ON MECHANICAL VENTILATOR AND TOLERATED THE CURRENT VENTILATOR SETTING SATURATING 100%.
[2019-03-07 09:34] LABS: APPEARANCE,URINE SL CLOUDY (CLEAR); BILIRUBIN,URINE NEGATIVE (NEGATIVE); BLOOD, URINE NEGATIVE Ery/uL (NEGATIVE); COLOR,URINE YELLOW (YELLOW); KETONES,URINE NEGATIVE (NEGATIVE); LEUKOCYTE ESTERASE ,URINE NEGATIVE (NEGATIVE); NITRITE, URINE NEGATIVE (NEGATIVE); PH,URINE 5.5 (5.0-8.0); PROTEIN,URINE TRACE mg/dl (NEGATIVE); UGLUCOSE NEGATIVE (NEGATIVE); UROBILINOGEN,URINE 0.2 EU/dL (0.2)
[2019-03-07 09:46] LABS: CREATININE, URINE 13.9 MG/DL (30.0-125.0)
--- NOTE | 2019-03-07 09:53 | NUR ---
RN NOTE: CALLED AND SPOKE WITH DEBRA FROM THE LABORATORY AND MADE HIM AWARE THAT PER DR. Kasi LUNDBERG HE WANTED TO CANCEL THE CYCLOSPORINE LEVEL DRAWN THIS AM AT 0430. AND PER , HE WILL ORDER ANOTHER ONE. DR. LUNDBERG SPECIFIED THAT THE CYCLOSPORINE SHOULD BE ADMINISTERED TO THE PATIENT ON TIME TO BE EFFECTIVE. WANTED THE CYCLOSPORINE LEVEL TO BE RESULTED PRIOR TO MEDICATION ADMINISTRATION. WAS INFORMED THAT ACCORDING TO LABORATORY STAFF DEBRA THE CYCLOSPORINE TEST WAS A SEND OUT. AND RESULTS CAN BE RECEIVED WITHIN 3-[address] Kasi LUNDBERG MADE AWARE.
[2019-03-07 10:18] LABS: BACTERIA,URINE None seen /HPF (None Seen); EOSINOPHIL,URINE None Seen; RBC,URINE NONE SEEN /HPF (0-2); SQUAMOUS EPITHELIAL CELL,UR Few /HPF (None Seen); WBC,URINE NONE SEEN /HPF (0-3)
[2019-03-07] MEDS: CALCIUM ACETATE 667 MG TABLET PO SCH ×3 (10:21→18:08)
[2019-03-07 10:22] LABS: OCCULT BLOOD STOOL NEGATIVE (NEGATIVE)
[2019-03-07] MEDS ORDERED: Calcium Gluconate 0.465 MEQ/ML VIAL IV ONE (10:30)
--- NOTE | 2019-03-07 12:30 | NUR ---
RN NOTE: DR. TELLO WAS PRESENT IN THE UNIT AND MD WAS MADE AWARE OF THE ABG RESULT. WITH NO ORDER AT THIS TIME.
[2019-03-07] MEDS: MICAFUNGIN SODIUM 100 MG in IV NS 0.9% 100 ML IV SCH (12:42)
[2019-03-07] MEDS: Z GUARD REMEDY 2 OZ OINT TP SCH (13:07)
--- NOTE | 2019-03-07 17:30 | NUR ---
RN NOTE: DR. Jovany DAVALOS CAME BY AND WAS GIVEN AN UPDATE REGARDING THE PATIENT'S CONDITION. MD MADE AWARE THAT HEPARIN DRIP WAS DISCONTINUED SINCE YESTERDAY DUE TO THE LOW HGB AND HIGH PTT LEVEL. PER MD, NO NEED FOR AN ANTI-COAGULANT AT THIS TIME.THE RISK FOR BLEEDING IS THE PRIORITY AT THE MOMENT.
--- NOTE | 2019-03-07 19:12 | NUR ---
RN NOTE: PATIENT REMAINED ON MECHANICAL VENTILATOR SATURATING 100%. WAGONER CATHETER WAS DRAINED WITH 530 ML OF YELLOW URINE DURING THE SHIFT. BEDSIDE REPORT GIVEN TO PM SHIFT NURSE FOR CONTINUITY OF CARE.
--- NOTE | 2019-03-07 20:05 | NUR ---
ICU/INVESTIGATION DIVISION LIEUTENANT PT'S FAMILY CALLED AND REQUESTED UPDATES, WHICH WAS GIVEN TO BOTH DAUGHTER AND SON AT DIFFERENT TIMES. SON SAID THAT TOMORROW HE WOULD CALL OR COME BACK. [phone]. WILL PASS THIS ON TO DAY SHIFT NURSE.
--- NOTE | 2019-03-07 21:10 | NUR ---
ICU/STARS COORDINATOR PT HAD A VERY LARGE LOOSE, GREEN BOWEL MOVEMENT WHICH REQUIRED PT TO HAVE A FULL BATH WITH CHANGE OF SHEETS. PT WAS TURNED AND REPOSITIONED FOR COMFORT AND CARE. WILL CONTINUE TO MONITOR THIS PT.
--- NOTE | 2019-03-07 23:10 | NUR ---
ICU/METAL ENGRAVER PT HAS BEEN CHANGED THROUGH OUT THE EARLY PART OF THE SHIFT, PT LOOKS LIKE SHE MAY BE HAVING SOME SKIN BREAK DOWN. CALL THE ELECTRICITY TRADING ANALYST DR TO GET ORDER FOR FLEXISEAL. THIS WAS OBTAINED AND ORDER WAS PLACED IN COMPUTER. WILL CONTINUE TO MONITOR THIS PT AND HER SKIN ISSUES.
[2019-03-08] VITALS (57 sets, daily range): BP systolic 89–114; BP diastolic 60–76
--- NOTE | 2019-03-08 00:59 | NUR ---
ICU/ASSISTED SALES REPRESENTATIVE BLOOD SUGAR WAS DONE FOR MIDNIGHT WAS 70, THERE IS NO COVERAGE FOR THIS PER MD ORDERS. WILL CONTINUE TO MONITOR THIS PER MD ORDERS AND HOSPITAL PROTOCOL. PT WAS TURNED AND REPOSITIONED FOR COMFORT AND CARE.
--- NOTE | 2019-03-08 02:30 | NUR ---
ICU/ROBOTICS TECHNICIAN PT WAS GIVEN AM CARE, ALONG WITH ORAL CARE. PT REMAINS ON CURRENT VENT SETTINGS WITH SATURATION AT 99%. PT WAS TURNED AND REPOSITIONED FOR COMFORT AND CARE. NO ACUTE DISTRESS SEEN AT THIS TIME. WILL CONTINUE TO MONITOR THIS PT.
--- NOTE | 2019-03-08 04:00 | NUR ---
ICU/MOTORCYCLE ENGINE ASSEMBLER AM LABS WERE DRAWN, ALONG WITH AM CHEST XRAY. AWAIT FOR ANY ABNORMAL LAB VALUES.
[2019-03-08] MEDS: CLINDAMYCIN 600 MG in IV D5W 50 ML IV SCH ×3 (04:23→20:54)
[2019-03-08] MEDS: PROPOFOL 100 ML IV PRN ×2 (04:24→16:36)
[2019-03-08 04:46] LABS: CALCIUM, SERUM 6.4 mg/dL (8.5-10.1); CREATININE 3.1 mg/dL (0.6-1.3); POTASSIUM 4.9 mmol/L (3.5-5.1)
[2019-03-08 04:48] LABS: BASOPHILS % (AUTO) 0.4 % (0.0-2.0); HEMATOCRIT 24 % (33-45); HEMOGLOBIN 8.1 g/dL (11.5-14.8); LYMPHOCYTES # (AUTO) 0.2 /CMM (0.8-4.8); LYMPHOCYTES % (AUTO) 2.3 % (20.0-44.0); MEAN CORPUSCULAR HGB CONC 34 g/dl (31.0-36.0); MEAN CORPUSCULAR VOLUME 83 fL (82-100); MONOCYTES # (AUTO) 0.4 /CMM (0.1-1.30); MONOCYTES % (AUTO) 4.4 % (2.0-12.0); NEUTROPHILS # (AUTO) 7.9 /CMM (1.8-8.9); NEUTROPHILS % (AUTO) 92.9 % (43.0-81.0); PLATELET COUNT (AUTO) 58 /CMM (150-450); RED BLOOD CELL COUNT(AUTO) 2.91 MIL/uL (4.0-5.2); WHITE BLOOD COUNT (AUTO) 8.5 K/uL (4.3-11.0)
[2019-03-08] MEDS: BLOOD SUGAR DIAGNOSTIC 1 EACH STRIP IN SCH ×3 (06:00→18:35)
--- NOTE | 2019-03-08 06:10 | NUR ---
ICU/DIRECTOR OF MUSIC BLOOD SUGAR WAS DONE FOR MIDNIGHT WAS 88, THERE IS NO COVERAGE FOR THIS PER MD ORDERS. WILL CONTINUE TO MONITOR THIS PER MD ORDERS AND HOSPITAL PROTOCOL. PT WAS TURNED AND REPOSITIONED FOR COMFORT AND CARE.
[2019-03-08] MEDS: MYCOPHENOLATE MOFETIL SUSP 500 MG/2.5 ML UDC GT SCH ×2 (06:34→16:05)
--- NOTE | 2019-03-08 07:25 | NUR ---
RN NOTE: RECEIVED PATIENT IN BED, INTUBATED AND SEDATED. ET TUBE SIZE 7.5 AND WAS TAPED TO THE LIP @22CM. CURRENT MECHANICAL VENTILATOR SETTING AC=26 UZ=221 FIO2=40% AND PEEP=5. DEVELOPMENT TECHNOLOGIST SHOWED SR HR= 70. INITIAL CVP 7. PATIENT NOTED WITH (R) IJ TRIPLE LUMEN CATHETER INFUSING DIPRIVAN @20MCG, D5NS@ 75ML/HR. OROGASTRIC TUBE CLAMPED. WAGONER CATHETER IN PLACED NOTED WITH MODERATE AMOUNT OF YELLOW URINE DRAINING TO GRAVITY. BED ALARMED AND LOCKED AT ALL TIMES. CALL LIGHT WITHIN REACH. NEEDS ANTICIPATED.
--- NOTE | 2019-03-08 07:30 | NUR ---
RN NOTE: CLARIFICATION OF IVF. PATIENT WAS RECEIVING 1/2 NS + SODIUM ACETATE 100MEQ @75ML/HR.
--- NOTE | 2019-03-08 07:45 | NUR ---
RN NOTE: PATIENT WAS NOTED WITH FLEXISEAL AND PER PM SHIFT NURSE, PATIENT HAD 4 LOOSE STOOLS LAST NIGHT. WILL CHECK AND SEE THE PATIENT IF SHE WOULD HAVE ANY EPISODE OF LOOSE STOOL WITHIN THE DAY.
[2019-03-08] MEDS: CEFEPIME 1 GM in IV D5W 50 ML IV SCH ×2 (08:00→20:54)
[2019-03-08] MEDS: CALCIUM ACETATE 667 MG TABLET PO SCH ×3 (08:00→18:32)
[2019-03-08] MEDS: ALLOPURINOL 100 MG TABLET GT SCH (08:00)
[2019-03-08] MEDS: FAMOTIDINE/PF INJ 20 MG/2 ML VIAL IV SCH ×2 (08:01→16:06)
[2019-03-08] MEDS: HYDROCORTISONE SOD SUCCINATE 100 MG/2 ML VIAL IV SCH ×3 (08:01→16:05)
[2019-03-08 08:17] LABS: ABG BASE EXCESS -10.4 mmol/L; ABG OXYGEN SATURATION 98.1 % (92.0-98.5); ABG PCO2 21.3 mmHg (35.0-45.0); ABG PH 7.403 (7.350-7.450); ABG PO2 159.4 mmHg (75.0-100.0); AaDO2 101.3 mmHg; MetHb 0.3 % (0.0-1.5); O2Hb 96.8 % (94.0-97.0); PEEP,BG 5 cm H2O; SITE, ABG Left Radial; VT, ABG 500 mL
--- NOTE | 2019-03-08 08:23 | NUR ---
RN NOTE: RECEIVED ABG RESULT FOR THE PATIENT WITH CURRENT MECHANICAL VENTILATOR SETTINGS AND DR. TELLO WAS MADE AWARE. NO ORDER AT THIS TIME.
--- NOTE | 2019-03-08 09:30 | NUR ---
RN NOTE: DR. WARNER WAS GIVEN AN UPDATE REGARDING THE PATIENT'S CONDITION OVERNIGHT ESPECIALLY HER URINE OUTPUT WITHIN 24 HR. MD WITH NO NEW ORDER AT THIS TIME.
[2019-03-08] MEDS ORDERED: NEPRO 1,000 ML BOTTLE GT PRN (11:00)
[2019-03-08] MEDS: MICAFUNGIN SODIUM 100 MG in IV NS 0.9% 100 ML IV SCH (13:07)
[2019-03-08] MEDS: LEVOFLOXACIN (250MG) 250 MG TABLET PO SCH (13:54)
--- NOTE | 2019-03-08 16:00 | NUR ---
RN NOTE: PATIENT WAS NOTED WITH LOOSE GREENISH STOOL. THIS WAS THE 3RD LIQUID STOOL FOR THE DAY. CALLED AND PAGED DR. WARNER TO INFORM ABOUT THE STOOL. AWAITING FOR MD'S RESPONSE.
--- NOTE | 2019-03-08 17:20 | NUR ---
RN NOTE: STILL AWAITING FOR DR. WARNER'S CALL BACK. CALLED AND INFORMED RL APONTE (INFECTIOUS DISEASE SAWDUST DRIER) TO GIVE AN UPDATE REGARDING THE PATIENT'S CURRENT STOOL CONSISTENCY. RL APONTE GAVE AN ORDER FOR C. DIFF TOXIN ASSAY, ORDER, NOTED AND CARRIED OUT. RL APONTE WAS INFORMED THAT PER PM SHIFT NURSE THE PATIENT HAD 4 LIQUID STOOL FROM LAST NIGHT IN WHICH FLEXISEAL WAS INSERTED.
--- NOTE | 2019-03-08 17:30 | NUR ---
RN NOTE: PATIENT'S STOOL WAS SENT TO LAB AND THE SUPPLEMENTARY DOCUMENTATION WAS SENT WITH THE STOOL. SPECIMEN AND PAPERWORK WAS HANDED TO CLAUDIO POTATO LOADER.
--- NOTE | 2019-03-08 18:00 | NUR ---
RN NOTE: PATIENT WAS PLACED ON CONTACT ISOLATION FOR POSSIBLE C. DIFF.
[2019-03-08 19:04] LABS: OCCULT BLOOD STOOL POSITIVE (NEGATIVE)
--- NOTE | 2019-03-08 19:15 | NUR ---
RN NOTE: BEDSIDE REPORT WAS GIVEN TO THE PM SHIFT NURSE FOR CONTINUITY OF CARE. PATIENT WAS A NOTED WITH MILD AGITATION AT THIS TIME. JUJU HILL WAS AT THE BEDSIDE WITH THE PATIENT. Addendum: 03/08/19 at 2020 by DEVYN KRISHNA RN WRONG PATIENT.
--- NOTE | 2019-03-08 19:20 | NUR ---
RN NOTE: BEDSIDE REPORT WAS GIVEN TO PM SHIFT NURSE FOR CONTINUITY OF CARE. PATIENT REMAINED ON OGT FEEDING NEPHRO @10ML/HR AND WAS TOLERATING IT WELL. ENDORSED TO PM SHIFT ABOUT THE TUBE FEEDING ORDER.
--- NOTE | 2019-03-08 19:40 | NUR ---
RN NOTES RECEIVED PT ORALLY INTUBATED WITH ETT 7.5 AND 22 CM AT LIP CONNECTED TO VENT SETTING OF AC 26 TV 500 FIO2 40% AND PEEP 5 TOELRATED WELL PT IS SEDATED WITH DIPRIVAN . TELE MONITOR REVEALS NSR , VSS . AFEBRILE. WITH OGTF NEPHRO @ 10 ML/HR WILL INCREASES Q6 - 8 TO 10 ML TO REACH GOAL @ 25 ML/HR. NO RESIDUAL PATENCY CHECKED. HOB KEPT ELEVATED. IV SITE ON RA HL AND RFA G 20 AND RIJ TLC WITH 1/2 NS + 2 AMP NA ACETATE @ 75 ML/HR. AND CVP CALIBRATED. PRESENT WITH F/C WITH YELLOW COLOR URINE OFF FROM THE FLOOR. KEPT PT CLEAN AND DRY , TURNED AND REPOSITIONED Q2H BED LOCKED AND IN LOWEST POSSIBLE POSITION. WILL CLOSELY MONITOR.
[2019-03-09] VITALS (43 sets, daily range): BP systolic 83–121; BP diastolic 46–80
[2019-03-09] MEDS: BLOOD SUGAR DIAGNOSTIC 1 EACH STRIP IN SCH ×5 (00:18→23:58)
[2019-03-09] MEDS: CLINDAMYCIN 600 MG in IV D5W 50 ML IV SCH ×2 (04:04→12:19)
[2019-03-09] MEDS: PROPOFOL 100 ML IV PRN ×2 (04:04→16:34)
[2019-03-09 04:42] LABS: BASOPHILS % (AUTO) 0.1 % (0.0-2.0); HEMATOCRIT 23 % (33-45); HEMOGLOBIN 7.9 g/dL (11.5-14.8); LYMPHOCYTES # (AUTO) 0.2 /CMM (0.8-4.8); LYMPHOCYTES % (AUTO) 3.5 % (20.0-44.0); MEAN CORPUSCULAR HGB CONC 34 g/dl (31.0-36.0); MEAN CORPUSCULAR VOLUME 83 fL (82-100); MONOCYTES # (AUTO) 0.5 /CMM (0.1-1.30); NEUTROPHILS # (AUTO) 5.9 /CMM (1.8-8.9); NEUTROPHILS % (AUTO) 89.4 % (43.0-81.0); PLATELET COUNT (AUTO) 62 /CMM (150-450); RED BLOOD CELL COUNT(AUTO) 2.82 MIL/uL (4.0-5.2); WHITE BLOOD COUNT (AUTO) 6.6 K/uL (4.3-11.0)
[2019-03-09 04:58] LABS: CALCIUM, SERUM 6.4 mg/dL (8.5-10.1); CREATININE 3.2 mg/dL (0.6-1.3); POTASSIUM 3.9 mmol/L (3.5-5.1)
--- NOTE | 2019-03-09 07:10 | NUR ---
RN NOTES PT REMAINED IN THE SAME CONDITION NO SIGNIFICANT CHANGES THROUGHOUT THE SHIFT. ETT AND VENT SETTING TOLERATED WELL. REMAINED NSR ON TELE MONITOR. AFEBRILE. VSS MAP REMAINED >65. OGTF TOLERATED WELL WITH HOB ELEVATED. ALL IV SITE INTACT AND PATENT CVP, PROPOFOL AND IVF RUNNING AT RIJ INTACT AND PATENT WITH GOOD BLOOD RETURN ALL IV ATB ADMINISTERED AND TOLERATED WELL. F/C AND FLEXISEAL INTACT AND PATENT. STILL WITH BLACK LOOSE STOOL. KEPT PT CLEAN AND DRY BED BATH DONE AND TOLERATED WELL. ENDORSED CONTINUITY OFCARE TO AM NURSE.
--- NOTE | 2019-03-09 07:55 | NUR ---
RN NOTE RECEIVED PATIENT IN BED, INTUBATED AND SEDATED. ET TUBE SIZE 7.5 AND 22CM TO THE LIP. CURRENTLY ON MECHANICAL VENTILATOR SETTING AC=26 PD=374 FIO2=40% AND PEEP=5. IMPROVEMENT LEAD HR= 75. INITIAL CVP 6. PATIENT NOTED WITH (R) IJ TRIPLE LUMEN CATHETER INFUSING DIPRIVAN @15MCG, D5NS@ 75ML/HR. OROGASTRIC TUBE RUNNING WITH TUBE FEEDING ORDER AT 25ML/HR. WAGONER CATHETER INTACT AND PATENT WITH ADEQUATE FLOW OF URINE. FLEXISEAL IN PLACE. BED LOW AND LOCKED POSITION AT ALL TIMES. PLACED CALL LIGHT WITHIN REACH.
[2019-03-09] MEDS: CALCIUM ACETATE 667 MG TABLET PO SCH ×3 (07:59→17:10)
[2019-03-09] MEDS: MYCOPHENOLATE MOFETIL SUSP 500 MG/2.5 ML UDC GT SCH ×2 (07:59→16:15)
[2019-03-09 08:11] LABS: ABG BASE EXCESS -7.6 mmol/L; ABG OXYGEN SATURATION 93.5 % (92.0-98.5); ABG PCO2 21.9 mmHg (35.0-45.0); ABG PH 7.458 (7.350-7.450); AaDO2 109.2 mmHg; COHb 0.7 % (0.5-1.5); MetHb 0.4 % (0.0-1.5); O2Hb 92.5 % (94.0-97.0); PEEP,BG 5 cm H2O; SITE, ABG Right Radial; VT, ABG 500 mL
[2019-03-09] MEDS: CEFEPIME 1 GM in IV D5W 50 ML IV SCH (08:57)
[2019-03-09] MEDS: FAMOTIDINE/PF INJ 20 MG/2 ML VIAL IV SCH ×2 (08:57→16:15)
[2019-03-09] MEDS: HYDROCORTISONE SOD SUCCINATE 100 MG/2 ML VIAL IV SCH ×3 (08:57→16:15)
[2019-03-09] MEDS: ALLOPURINOL 100 MG TABLET GT SCH (08:57)
--- NOTE | 2019-03-09 10:00 | NUR ---
RN NOTE PER DR TELLO, HE STATED TO HOLD DIPROVAN AND SEE HOW PATIENT DOES AND RESPONDS THROUGHOUT THE DAY.
--- NOTE | 2019-03-09 12:00 | NUR ---
RN NOTE SINCE DIPRIVAN WAS TURNED OFF PATIENT IS RESPONSIVE TO TOUCH AND OPEN EYES. NO DISTRESS AT THIS TIME
[2019-03-09] MEDS: MICAFUNGIN SODIUM 100 MG in IV NS 0.9% 100 ML IV SCH (13:19)
--- NOTE | 2019-03-09 14:00 | NUR ---
RN NOTE PATIENT IN A-FIB HR 120-130S MD MAYBE AWARE, AWAITING FOR NEW ORDERS
--- NOTE | 2019-03-09 14:20 | NUR ---
RN NOTE PER MD ORDERED K AND MG LEVELS AND NS 500ML BOLUS AND CARDIO CONSULT WITH DR PARKER
--- NOTE | 2019-03-09 14:30 | NUR ---
RN NOTE REPLAYED MESSAGE TO DR PARKER AND MADE AWARE
[2019-03-09] MEDS ORDERED: IV NS 0.9% 500 ML BAG IV ONE (15:00)
--- NOTE | 2019-03-09 15:49 | NUR ---
RN NOTE DR PARKER AT BEDSIDE
[2019-03-09] MEDS ORDERED: AMIODARONE 150 MG in IV D5W 100 ML IV ONE (16:30)
[2019-03-09] MEDS ORDERED: AMIODARONE 900 MG in IV D5W 500 ML IV PRN (16:30)
--- NOTE | 2019-03-09 17:10 | NUR ---
RN NOTE PATIENT STARTED ON AMIO DRIP PER MD ORDER
--- NOTE | 2019-03-09 19:17 | NUR ---
RN NOTE PATIENT IS NO DISTRESS. WILL ENDORSE TO NEXT SHIFT TO CONTINUE TO MONITOR CONTINUITY OF CARE.
[2019-03-09] MEDS: METRONIDAZOLE 500 MG TABLET PO SCH (21:22)
--- NOTE | 2019-03-09 22:32 | NUR ---
FIO2 INCREASED DUE TO DECREASED SPO2. RN NOTIFIED Addendum: 03/09/19 at 2234 by SRIDHAR RAMSEY RT Amended: Links added.
[2019-03-09] MEDS: NEPRO 1,000 ML BOTTLE GT PRN (23:57)
[2019-03-10] VITALS (51 sets, daily range): BP systolic 99–128; BP diastolic 62–86
[2019-03-10] MEDS: METRONIDAZOLE 500 MG TABLET PO SCH ×3 (04:55→21:23)
[2019-03-10] MEDS: BLOOD SUGAR DIAGNOSTIC 1 EACH STRIP IN SCH ×3 (05:16→17:57)
[2019-03-10 05:20] LABS: CALCIUM, SERUM 7.1 mg/dL (8.5-10.1); CREATININE 2.9 mg/dL (0.6-1.3); POTASSIUM 2.9 mmol/L (3.5-5.1)
--- NOTE | 2019-03-10 06:00 | NUR ---
RN BUN LEVEL REPORTED BY LAB 81, MD LIM AT BEDSIDE MADE AWARE. STATED HE WILL TAKE CARE OF IT. CHARGE NURSE AWARE.
--- NOTE | 2019-03-10 06:03 | NUR ---
RN MD LIM MADE AWARE OF POTASSIUM LEVEL 2.9, STATED HE WILL TAKE CARE OF IT. CHARGE NURSE AWARE
[2019-03-10] MEDS: POTASSIUM CL. PREMIX PERIPHER. 50 ML IV SCH ×2 (06:52→07:57)
--- NOTE | 2019-03-10 07:30 | NUR ---
RN NOTE: RECEIVED PATIENT IN BED, ASLEEP, BUT CAN SPONTANEOUSLY OPEN EYES WITH TACTILE STIMULI. RESPIRATION EVEN AND UNLABORED SATURATING 100% WITH CURRENT MECHANICAL VENTILATOR SETTING. (R) IJ TRIPLE LUMEN CATHETER WAS NOTED INTACT AND PATENT INFUSING WITH DIPRIVAN 20MCG AND 1/2 NS + SODIUM ACETATE 100MEQ IV. HOB ELEVATED. OG TUBE FEEDING NOTED WITH NEPHRO @25ML/HR AND PATIENT WAS TOLERATING WELL. CURRENTLY RECEIVING AMIODARONE DRIP 0.5MG AND PATIENT WAS STILL NOTED WITH UNCONTROLLED ATRIAL FIBRILLATION ON THE MONITOR WITH HR [phone]. PER REPORT OF THE PM SHIFT NURSE, THE AMIODARONE DRIP 1MG WAS INITIALLY STARTED ON 03/09/19 @1710 AND RATE WAS DECREASED ON 03/09/19 @2310. AWAITING FOR THE JAWBONE BREAKER, DR. PARKER TO MAKE ROUNDS TO GIVE AN UPDATE RE: PATIENT'S CONDITION. ON CONTACT ISOLATION FOR POSSIBLE C. DIFF. FLEXISEAL IN PLACED WITH BLACK/GREENISH LIQUID STOOL. WAGONER CATHETER IN PLACED WITH YELLOW URINE DRAINING TO GRAVITY. BED ALARMED AND LOCKED AT ALL TIMES. CALL LIGHT WITHIN REACH. NEEDS ANTICIPATED.
--- NOTE | 2019-03-10 07:54 | NUR ---
RT Pt received orally intubated with a 7.5 ETT secured at 20cm at the lip line. Pt responds to stimuli when sx'd. Vent alarms are set and audible with BVM by bedside. PROFILING MACHINE SETUP OPERATOR cuff pressure noted. Vent is plugged into red outlet. Sx'd small thick pale yellow secretions. No respiratory distress noted. Addendum: 03/10/19 at 1212 by DOUGIE CORDERO RT Amended: Links added.
[2019-03-10] MEDS: CALCIUM ACETATE 667 MG TABLET PO SCH ×3 (07:55→17:49)
[2019-03-10] MEDS: MYCOPHENOLATE MOFETIL SUSP 500 MG/2.5 ML UDC GT SCH ×2 (07:55→16:39)
--- NOTE | 2019-03-10 08:19 | NUR ---
RN NOTE: CALLED AND SPOKE WITH IMA PHARMACIST AND MADE HIM AWARE THAT DESPITE SCANNING THE PATIENT'S AMIODARONE BAG THE SYSTEM WAS NOT TAKING THE CURRENT DOSE. PER MIA PHARMACIST HE WILL SEND A NEW LABEL FOR THE PATIENT'S AMIODARONE BAG. PATIENT'S AMIODARONE DRIP STILL INFUSING AT 0.5 MG/MIN.
[2019-03-10] MEDS ORDERED: AMIODARONE 900 MG in IV D5W 482 ML IV PRN (08:30)
--- NOTE | 2019-03-10 08:30 | NUR ---
RN NOTE: DR. PARKER PRESENT IN THE UNIT AND WAS GIVEN AN UPDATE REGARDING THE PATIENT'S CONDITION. PER MD, HE WAS PLANNING TO DO CARDIOVERSION IF FAMILY WILL AGREE.
[2019-03-10] MEDS: PROPOFOL 100 ML IV PRN ×2 (08:46→20:44)
--- NOTE | 2019-03-10 08:50 | NUR ---
RN NOTE: CALLED AND LEFT VOICE MESSAGE TO GORDON GRISSOM (DAUGHTER) REGARDING THE PLAN OF DR. PARKER TO PERFORM A CARDIOVERSION. AWAITING FOR RESPONSE.
--- NOTE | 2019-03-10 09:17 | NUR ---
RN NOTE: CALLED AND SPOKE WITH EDEMANUEL NAINA (SON) AND HE WAS INFORMED THAT A PHONE CALL WAS ATTEMPTED FOR HER SISTER, GORDON GRISSOM BUT SHE WAS NOT ANSWERING, SO HE WAS CONTACTED REGARDING THE CARDIOVERSION PROCEDURE THAT DR. PARKER WANTED TO PERFORM TO THE PATIENT. VERIFIED WITH HIM THAT HE WAS AGREEING WITH THE CARDIOVERSION PROCEDURE THAT WILL BE DONE TODAY BY DR. PARKER. RISKS AND BENEFITS WERE DISCUSSED TO EMMAFAWNMANUEL (SON).
[2019-03-10] MEDS: ALLOPURINOL 100 MG TABLET GT SCH (09:30)
[2019-03-10] MEDS: FAMOTIDINE/PF INJ 20 MG/2 ML VIAL IV SCH (09:30)
[2019-03-10] MEDS: HYDROCORTISONE SOD SUCCINATE 100 MG/2 ML VIAL IV SCH ×3 (09:30→16:39)
--- NOTE | 2019-03-10 09:55 | NUR ---
RN NOTE: PATIENT WAS S/P CARDIOVERSION UNDER THE SUPERVISION OF DR. PARKER AND HER HEART RHYTHM SHOWED CONTROLLED A. FIB HR=77. PATIENT REMAINED SEDATED. CALLED AND SPOKE WITH GORDON GRISSOM, DAUGHTER REGARDING THE PATIENT'S CURRENT HEART RHYTHM CURRENTLY CONTROLLED A. FIB ON THE RUBBER ROLLER GRINDER OPERATOR. AMIODARONE WAS HELD AT THIS TIME PER DR. PARKER. WILL CONTINUE TO MONITOR THE PATIENT.
[2019-03-10] MEDS: MICAFUNGIN SODIUM 100 MG in IV NS 0.9% 100 ML IV SCH (12:29)
--- NOTE | 2019-03-10 14:20 | NUR ---
RN NOTE: DR. Swathi MATIAS WAS MADE AWARE OF THE PATIENT'S CURRENT CONDITION CONTROLLED A. FIB ON CONSUMER BANKER HR= 78. REQUESTED FOR ANOTHER PTT LEVEL FOR THE PATIENT. PER MD, HE WILL WRITE AN ORDER FOR PTT IN AM.
[2019-03-10] MEDS: LEVOFLOXACIN (250MG) 250 MG TABLET PO SCH (14:32)
--- NOTE | 2019-03-10 14:36 | NUR ---
RN NOTE: DR. Swathi MATIAS PRESENT AT THE BEDSIDE AND WAS GIVEN UPDATE REGARDING THE PATIENT'S CONDITION. C. DIFF STOOL WAS RESULTED AND SHOWED NEGATIVE FOR C. DIFF. MADE AWARE.
[2019-03-10] MEDS: Z GUARD REMEDY 2 OZ OINT TP SCH (16:49)
--- NOTE | 2019-03-10 19:00 | NUR ---
JAVA LEAD NOTES RECEIVED PATIENT ORALLY INTUBATED, DROWSY BUT EASILY AROUSABLE/AWAKENS,OPENS EYES,TRIES TO TALK,SEEMS TO UNDERSTAND AND RECOGNIZE DAUGHTER AT BEDSIDE,VERY WEAK, SLIGHTLY ABLE TO MOVE ARMS, SLIGHTLY WITHDRAWS LEGS. INTUBTAED TO THE VENTILATOR ON AC MODE, + COUGH AND GAG. ON PROPOFOL DRIP FOR SEDATION ,RASS -2.TRIPLE LUMEN CATHETER VIA RIGHT IJ, OGT WITH ON GOING FEEDING,ASPIRATION PRECAUTION OBSERVED. COMFORT CARE DONE.
--- NOTE | 2019-03-10 19:25 | NUR ---
RN NOTE: BEDSIDE REPORT GIVEN TO PM SHIFT NURSE FOR CONTINUITY OF CARE. PATIENT REMAINED ON ETT SIZE 7.5 AND ATTACHED TO LIP LINE AT 22CM. DAUGHTER GORDON GRISSOM WAS GIVEN AN UPDATE REGARDING HER MOTHER'S CONDITION.
[2019-03-10] MEDS ORDERED: ACYCLOVIR 800 MG TABLET PO SCH (20:00)
[2019-03-10] MEDS ORDERED: ACYCLOVIR 200 MG CAPSULE PO SCH (21:00)
[2019-03-10] MEDS: PANTOPRAZOLE 40 MG/PACK PACK GT SCH (21:23)
[2019-03-11] VITALS (43 sets, daily range): BP systolic 102–135; BP diastolic 58–91
--- NOTE | 2019-03-11 | NUR ---
Remains stable,still in AFIB with controlled rate as low as 69 HR ,BP stable.Sedated but arousable, opens eyes.not in any distress.
[2019-03-11] MEDS: BLOOD SUGAR DIAGNOSTIC 1 EACH STRIP IN SCH ×4 (00:03→17:16)
[2019-03-11 04:38] LABS: BASOPHILS % (AUTO) 0.1 % (0.0-2.0); HEMATOCRIT 22 % (33-45); HEMOGLOBIN 7.5 g/dL (11.5-14.8); LYMPHOCYTES # (AUTO) 0.3 /CMM (0.8-4.8); LYMPHOCYTES % (AUTO) 3.2 % (20.0-44.0); MEAN CORPUSCULAR HGB CONC 34 g/dl (31.0-36.0); MEAN CORPUSCULAR VOLUME 83 fL (82-100); MONOCYTES # (AUTO) 0.3 /CMM (0.1-1.30); MONOCYTES % (AUTO) 2.9 % (2.0-12.0); NEUTROPHILS # (AUTO) 10.1 /CMM (1.8-8.9); NEUTROPHILS % (AUTO) 93.8 % (43.0-81.0); PLATELET COUNT (AUTO) 60 /CMM (150-450); RED BLOOD CELL COUNT(AUTO) 2.64 MIL/uL (4.0-5.2); WHITE BLOOD COUNT (AUTO) 10.7 K/uL (4.3-11.0)
[2019-03-11 05:02] LABS: ALBUMIN 1.8 g/dL (3.4-5.0); BILIRUBIN,TOTAL 0.8 mg/dL (0.2-1.0); CALCIUM, SERUM 7.5 mg/dL (8.5-10.1); CREATININE 2.6 mg/dL (0.6-1.3); MAGNESIUM 1.8 mg/dL (1.8-2.4); PHOSPHORUS 4.2 mg/dL (2.5-4.9); TOTAL PROTEIN, SERUM 4.3 g/dL (6.4-8.2)
[2019-03-11 05:18] LABS: POTASSIUM 2.4 mmol/L (3.5-5.1)
[2019-03-11] MEDS: METRONIDAZOLE 500 MG TABLET PO SCH (05:24)
[2019-03-11 05:29] LABS: LYMPHOCYTES % (MANUAL) 3 % (16-48); NEUTROPHILS % (MANUAL) 95 (42-76)
[2019-03-11 05:30] LABS: MONOCYTES % (MANUAL) 2 % (0-11.0)
[2019-03-11] MEDS: NEPRO 1,000 ML BOTTLE GT PRN (05:37)
--- NOTE | 2019-03-11 06:00 | NUR ---
REMAINS STABLE,NOT IN ANY DISTRESS,STILL ON PROPOFOL BUT EASILY AROUSABLE. CALLED MD SERVICE, ANSWERED RELAYED POTASSIUM OF 2.4, ORDERED REPLACEMENT (TOTAL 80 MEQ)TO BE GIVEN 10 MEQ Q HR
[2019-03-11] MEDS ORDERED: POTASSIUM CL. PREMIX PERIPHER. 50 ML IV SCH (06:30)
--- NOTE | 2019-03-11 07:00 | NUR ---
Patient remains stable.Report given to Ezequiel MARTINEZ
--- NOTE | 2019-03-11 08:00 | NUR ---
RN NOTE: PATIENT RECEIVED ASLEEP, EASILY AROUSAL OPEN EYES TO VERBAL & TACTILE STIMULI. ET TUBE WITH VENTILATOR SETTINGS TOLERATING WELL. NO BREATHING DISTRESS NOTED. CONTINUE WITH PROPOFOL DRIP. OG TUBE INTACT, RUNNING WITH TUBE FEEDING TOLERATING WELL. F/C DRAINING WELL WITH GRAVITY. SAFETY MEASURES OBSERVED. ASPIRATION PRECAUTIONS OBSERVED. CONTINUE TO MONITOR.
[2019-03-11] MEDS: POTASSIUM CHLORIDE 20 MEQ POWDER PACKET NG SCH ×5 (08:01→15:19)
[2019-03-11] MEDS: MYCOPHENOLATE MOFETIL SUSP 500 MG/2.5 ML UDC GT SCH ×2 (08:02→17:08)
[2019-03-11] MEDS: CALCIUM ACETATE 667 MG TABLET PO SCH (08:02)
[2019-03-11] MEDS: HYDROCORTISONE SOD SUCCINATE 100 MG/2 ML VIAL IV SCH ×3 (08:50→17:07)
[2019-03-11] MEDS: ALLOPURINOL 100 MG TABLET GT SCH (08:51)
[2019-03-11] MEDS: ACYCLOVIR 200 MG CAPSULE GT SCH (08:51)
[2019-03-11] MEDS: PANTOPRAZOLE 40 MG/PACK PACK GT SCH ×2 (08:51→20:55)
[2019-03-11] MEDS: LEVOFLOXACIN (250MG) 250 MG TABLET GT SCH (08:51)
[2019-03-11 08:55] LABS: ABG BASE EXCESS 0.2 mmol/L; ABG OXYGEN SATURATION 97.8 % (92.0-98.5); ABG PCO2 29.5 mmHg (35.0-45.0); ABG PO2 149.7 mmHg (75.0-100.0); AaDO2 101.6 mmHg; COHb 0.8 % (0.5-1.5); MetHb 0.3 % (0.0-1.5); O2Hb 96.7 % (94.0-97.0); PEEP,BG 5 cm H2O; SITE, ABG Right Radial; VT, ABG 500 mL
[2019-03-11] MEDS: PROPOFOL 100 ML IV PRN (11:13)
--- NOTE | 2019-03-11 12:30 | NUR ---
RN NOTE: NOTED OG TUBE CLOGGED, TRIED TO DE-CLOGGED, NOT SUCCESSFUL. REMOVED OLDER TUBE & REPLACED WITH NEW OG TUBE, PLACEMENT VERIFIED BY & BRENDA RN (2 RNs). STARTED TUBE FEEDING ORDERED.
[2019-03-11] MEDS: MICAFUNGIN SODIUM 100 MG in IV NS 0.9% 100 ML IV SCH (12:32)
[2019-03-11] MEDS: METRONIDAZOLE 500 MG TABLET GT SCH ×2 (12:32→20:55)
[2019-03-11] MEDS: CALCIUM ACETATE 667 MG TABLET GT SCH ×2 (12:33→17:07)
--- NOTE | 2019-03-11 17:52 | NUR ---
RN NOTE: PATIENT REMAINS ASLEEP, EASILY AROUSAL, OPEN EYES, BLINK EYES, SMILES FOR COMMUNICATION. ET TUBE INTACT, VENT SETTINGS TOLERATING WELL. ORAL G-TUBE INTACT, RUNNING WELL WITH TUBE FEEDING. ASPIRATION PRECAUTIONS OBSERVED. HOB ELEVATED. CONTINUE WITH PROPOFOL DRIP. SAFETY MEASURES OBSERVED. TURNING Q2H. CONTINUE TO MONITOR. NO SIGNIFICANT CHANGES NOTED DURING SHIFT.
--- NOTE | 2019-03-11 19:35 | NUR ---
RECEIVED PATIENT IN BED, ORALLY INTUBATED, AROUSALS/AWAKENS, OPEN EYES TO VOICE, ABLE TO NOD HER HEAD WITH SIMPLE ANSWERS YES/NO. PATIENT ON PROPOFOL DRIP AT 20 MCG/KG. SAFETY MEASURES IMPLEMENTED. CONTINUE TO MONITOR
--- NOTE | 2019-03-11 19:36 | NUR ---
PT RCVD ORALLY INTUBATED WITH 7.5 ETT SECURED @ 20 CM AT THE LIP ON [facility] VENT WITH NOTED SETTINGS. PT IS AWAKE , ALERT, NON VERBAL AND RESPONDS TO STIMULI WHEN SUCTIONED. NO RESP DISTRESS OR SOB NOTED AT THIS TIME . SUCTIONED SMALL AMOUNT OF WHITE THICK SECRETIONS . ALARMS ARE SET AND AUDIBLE. VENT PLUGGED INTO RED OUTLET. AMBU BAG BEDSIDE. WILL CONTINUE TO MONITOR.
[2019-03-12] VITALS (50 sets, daily range): BP systolic 112–145; BP diastolic 48–96
[2019-03-12] MEDS: BLOOD SUGAR DIAGNOSTIC 1 EACH STRIP IN SCH ×5 (00:01→23:24)
[2019-03-12] MEDS: PROPOFOL 100 ML IV PRN (00:04)
[2019-03-12 04:52] LABS: BASOPHILS % (AUTO) 0.1 % (0.0-2.0); EOSINOPHILS % (AUTO) 0.1 % (0.0-6.0); HEMATOCRIT 23 % (33-45); HEMOGLOBIN 7.5 g/dL (11.5-14.8); LYMPHOCYTES # (AUTO) 0.3 /CMM (0.8-4.8); LYMPHOCYTES % (AUTO) 3.5 % (20.0-44.0); MEAN CORPUSCULAR HGB CONC 33 g/dl (31.0-36.0); MEAN CORPUSCULAR VOLUME 84 fL (82-100); MONOCYTES # (AUTO) 0.4 /CMM (0.1-1.30); MONOCYTES % (AUTO) 4.4 % (2.0-12.0); NEUTROPHILS % (AUTO) 91.9 % (43.0-81.0); PLATELET COUNT (AUTO) 58 /CMM (150-450); WHITE BLOOD COUNT (AUTO) 9.8 K/uL (4.3-11.0)
[2019-03-12 05:28] LABS: ALBUMIN 1.8 g/dL (3.4-5.0); BILIRUBIN,TOTAL 0.8 mg/dL (0.2-1.0); CALCIUM, SERUM 7.7 mg/dL (8.5-10.1); CREATININE 2.2 mg/dL (0.6-1.3); MAGNESIUM 1.6 mg/dL (1.8-2.4); PHOSPHORUS 3.1 mg/dL (2.5-4.9); POTASSIUM 3.7 mmol/L (3.5-5.1); TOTAL PROTEIN, SERUM 4.2 g/dL (6.4-8.2)
[2019-03-12] MEDS: METRONIDAZOLE 500 MG TABLET GT SCH ×3 (05:35→21:30)
[2019-03-12 05:42] LABS: LYMPHOCYTES % (MANUAL) 4 % (16-48); MONOCYTES % (MANUAL) 3 % (0-11.0); NEUTROPHILS % (MANUAL) 93 (42-76)
[2019-03-12] MEDS: ACYCLOVIR 200 MG CAPSULE GT SCH (08:19)
[2019-03-12] MEDS: PANTOPRAZOLE 40 MG/PACK PACK GT SCH ×2 (08:19→21:30)
[2019-03-12] MEDS: ALLOPURINOL 100 MG TABLET GT SCH (08:19)
[2019-03-12] MEDS: CALCIUM ACETATE 667 MG TABLET GT SCH ×3 (08:19→17:09)
[2019-03-12] MEDS: HYDROCORTISONE SOD SUCCINATE 100 MG/2 ML VIAL IV SCH ×3 (08:19→17:30)
[2019-03-12] MEDS: MYCOPHENOLATE MOFETIL SUSP 500 MG/2.5 ML UDC GT SCH ×2 (08:21→17:09)
--- NOTE | 2019-03-12 08:54 | NUR ---
received pt from steward/stewardess night, off of sedation on SIMV mode, alert, follows commands, A fib controlled, CVP, lungs partially congested, some pitting/non pitting edema, OG to feeding tolerates well, rectal tube - diarrhea, v/s stable, no pain, pt turned and repositioned.
[2019-03-12 09:36] LABS: ABG BASE EXCESS -1.8 mmol/L; ABG OXYGEN SATURATION 97.3 % (92.0-98.5); ABG PCO2 27.3 mmHg (35.0-45.0); ABG PH 7.501 (7.350-7.450); ABG PO2 128.3 mmHg (75.0-100.0); AaDO2 53.5 mmHg; COHb 0.7 % (0.5-1.5); MetHb 0.6 % (0.0-1.5); PEEP,BG 5 cm H2O; SITE, ABG Left Brachial; VENT MODE, BG SIMV PS12; VT, ABG 450 mL
[2019-03-12] MEDS: APIXABAN 2.5 MG TABLET GT SCH ×2 (11:30→17:10)
[2019-03-12] MEDS: MICAFUNGIN SODIUM 100 MG in IV NS 0.9% 100 ML IV SCH (12:04)
--- NOTE | 2019-03-12 12:32 | NUR ---
pt tolerates SIMV well, v/s stable, no pain, pt turned and repositioned q2hrs, family at the bedside.
--- NOTE | 2019-03-12 16:21 | NUR ---
pt is resting in the bed, A fib controlled, SR at times, v/s stable, no pain, pt cleaned, changed and repositioned q2hrs.
[2019-03-12] MEDS: cycloSPORINE SOLUTION 500 MG/5 ML UDC GT SCH (17:30)
--- NOTE | 2019-03-12 19:19 | NUR ---
PT RCVD ORALLY INTUBATED WITH 7.5 ETT SECURED @ 20 CM AT THE LIP ON [facility] VENT WITH NOTED SETTINGS. PT IS AWAKE , ALERT, NON VERBAL AND RESPONDS TO STIMULI WHEN SUCTIONED. NO RESP DISTRESS OR SOB NOTED AT THIS TIME . SUCTIONED MODERATE AMOUNT OF YELLOW THICK WITH PINK TINGED SECRETIONS . ALARMS ARE SET AND AUDIBLE. VENT PLUGGED INTO RED OUTLET. AMBU BAG BEDSIDE. WILL CONTINUE TO MONITOR.
[2019-03-13] VITALS (36 sets, daily range): BP systolic 124–153; BP diastolic 60–96
[2019-03-13] MEDS: NEPRO 1,000 ML BOTTLE GT PRN (00:31)
[2019-03-13 04:50] LABS: BASOPHILS % (AUTO) 0.1 % (0.0-2.0); EOSINOPHILS % (AUTO) 0.1 % (0.0-6.0); HEMATOCRIT 22 % (33-45); HEMOGLOBIN 7.4 g/dL (11.5-14.8); LYMPHOCYTES # (AUTO) 0.4 /CMM (0.8-4.8); LYMPHOCYTES % (AUTO) 4.3 % (20.0-44.0); MEAN CORPUSCULAR HGB CONC 33 g/dl (31.0-36.0); MEAN CORPUSCULAR VOLUME 85 fL (82-100); MONOCYTES # (AUTO) 0.6 /CMM (0.1-1.30); MONOCYTES % (AUTO) 5.7 % (2.0-12.0); NEUTROPHILS # (AUTO) 9.3 /CMM (1.8-8.9); NEUTROPHILS % (AUTO) 89.8 % (43.0-81.0); PLATELET COUNT (AUTO) 63 /CMM (150-450); RED BLOOD CELL COUNT(AUTO) 2.64 MIL/uL (4.0-5.2); WHITE BLOOD COUNT (AUTO) 10.4 K/uL (4.3-11.0)
[2019-03-13 05:06] LABS: CALCIUM, SERUM 7.6 mg/dL (8.5-10.1); CREATININE 1.8 mg/dL (0.6-1.3); POTASSIUM 3.4 mmol/L (3.5-5.1)
[2019-03-13] MEDS: BLOOD SUGAR DIAGNOSTIC 1 EACH STRIP IN SCH ×3 (05:17→17:22)
[2019-03-13] MEDS: METRONIDAZOLE 500 MG TABLET GT SCH ×3 (05:17→20:45)
[2019-03-13 05:25] LABS: LYMPHOCYTES % (MANUAL) 5 % (16-48); MONOCYTES % (MANUAL) 5 % (0-11.0); NEUTROPHILS % (MANUAL) 90 (42-76)
[2019-03-13] MEDS ORDERED: POTASSIUM CHLORIDE 20 MEQ POWDER PACKET NG SCH (07:30)
[2019-03-13] MEDS: MYCOPHENOLATE MOFETIL SUSP 500 MG/2.5 ML UDC GT SCH ×2 (07:45→16:35)
[2019-03-13] MEDS: cycloSPORINE SOLUTION 500 MG/5 ML UDC GT SCH ×2 (07:45→16:35)
[2019-03-13] MEDS: CALCIUM ACETATE 667 MG TABLET GT SCH ×3 (08:05→17:09)
[2019-03-13] MEDS: PANTOPRAZOLE 40 MG/PACK PACK GT SCH ×2 (08:05→20:45)
[2019-03-13] MEDS: ALLOPURINOL 100 MG TABLET GT SCH (08:05)
[2019-03-13] MEDS: ACYCLOVIR 200 MG CAPSULE GT SCH (08:05)
[2019-03-13] MEDS: LEVOFLOXACIN (250MG) 250 MG TABLET GT SCH (08:05)
[2019-03-13] MEDS: APIXABAN 2.5 MG TABLET GT SCH ×2 (08:06→16:37)
[2019-03-13] MEDS: HYDROCORTISONE SOD SUCCINATE 100 MG/2 ML VIAL IV SCH ×3 (08:06→16:33)
--- NOTE | 2019-03-13 09:12 | NUR ---
received pt from overnight caregiver, alert, follows simple commands, Afib, CPAP mode tolerates well, OG to feeding, rectal tube diarrhea, f/c good output, v/s stable, no pain, pt turned and repositioned.
[2019-03-13 09:16] LABS: ABG BASE EXCESS -1.5 mmol/L; ABG OXYGEN SATURATION 97.8 % (92.0-98.5); ABG PCO2 28.9 mmHg (35.0-45.0); ABG PH 7.488 (7.350-7.450); AaDO2 35.9 mmHg; MetHb 0.6 % (0.0-1.5); O2Hb 96.2 % (94.0-97.0); PEEP,BG 5 cm H2O; SITE, ABG Left Brachial; VENT MODE, BG CPAP PS 12
[2019-03-13] MEDS ORDERED: DC PROPOFOL WHEN EXTUBATED XX PRN (09:30)
--- NOTE | 2019-03-13 09:30 | NUR ---
pt successfully extubated at 09:23, now on 3L 02 sat well, alert, follows commands, v/s stable, no pain.
[2019-03-13] MEDS: MICAFUNGIN SODIUM 100 MG in IV NS 0.9% 100 ML IV SCH (12:54)
--- NOTE | 2019-03-13 16:23 | NUR ---
pt is resting in the bed, A fib controlled, alert, follows commands, on 3L 02 sat well, v/s stable, no pain, pt cleaned, changed and repositioned q2hrs.
--- NOTE | 2019-03-13 20:34 | NUR ---
GUN NUMBER. INITIAL ASSESSMENT. RECEIVED THE PT REST ON THE BED. AWAKE, ALERT. FOLLOW COMMANDS. MILLER ROD MILL SHOWING AFIB. CONTROLLED. IV RT IJ. IVF NS IN 20MEQ POTASSIUM 75ML/H. FC PATENT. OXYGEN 3L VIA NASAL CANNULA. SAT 98%, NO ACUTE DISTRESS NOTED. HOB ELEVATED, TURN AND REPOSITION Q2H, WILL CONTINUE TO MONITOR VITALS.
[2019-03-14] VITALS (18 sets, daily range): BP systolic 118–152; BP diastolic 53–82
[2019-03-14] MEDS: BLOOD SUGAR DIAGNOSTIC 1 EACH STRIP IN SCH ×5 (00:21→23:32)
--- NOTE | 2019-03-14 04:09 | NUR ---
agricultural appraiser. am care. ORAL CARE, BED BATH GIVEN. REMAINING SAME IVF TOLERATED WELL. SAT 96%, NO ACUTE DISTRESS NOTED. LEAD QUALITY CONTROL TECHNICIAN SHOWING AFIB, CONTROLLED.FC PATENT. URINE DRAINING, HOB ELEVATED, TURN AND REPOSITION Q2H. WILL CONTINUE TO MONITOR VITALS.
[2019-03-14 05:12] LABS: BASOPHILS % (AUTO) 0.1 % (0.0-2.0); EOSINOPHILS % (AUTO) 0.2 % (0.0-6.0); HEMATOCRIT 22 % (33-45); HEMOGLOBIN 7.2 g/dL (11.5-14.8); LYMPHOCYTES # (AUTO) 0.7 /CMM (0.8-4.8); LYMPHOCYTES % (AUTO) 7.6 % (20.0-44.0); MEAN CORPUSCULAR HGB CONC 33 g/dl (31.0-36.0); MEAN CORPUSCULAR VOLUME 84 fL (82-100); MONOCYTES # (AUTO) 0.8 /CMM (0.1-1.30); MONOCYTES % (AUTO) 8.5 % (2.0-12.0); NEUTROPHILS # (AUTO) 8.2 /CMM (1.8-8.9); NEUTROPHILS % (AUTO) 83.6 % (43.0-81.0); PLATELET COUNT (AUTO) 54 /CMM (150-450); RED BLOOD CELL COUNT(AUTO) 2.58 MIL/uL (4.0-5.2); WHITE BLOOD COUNT (AUTO) 9.8 K/uL (4.3-11.0)
[2019-03-14 05:26] LABS: ALBUMIN 1.9 g/dL (3.4-5.0); CALCIUM, SERUM 7.5 mg/dL (8.5-10.1); CREATININE 1.4 mg/dL (0.6-1.3); MAGNESIUM 1.3 mg/dL (1.8-2.4); PHOSPHORUS 3.1 mg/dL (2.5-4.9); POTASSIUM 3.6 mmol/L (3.5-5.1)
[2019-03-14] MEDS: METRONIDAZOLE 500 MG TABLET GT SCH ×4 (05:44→20:52)
[2019-03-14 06:07] LABS: EOSINOPHILS % (MANUAL) 1 % (0-4); LYMPHOCYTES % (MANUAL) 6 % (16-48); MONOCYTES % (MANUAL) 4 % (0-11.0); NEUTROPHILS % (MANUAL) 89 (42-76)
[2019-03-14] MEDS: cycloSPORINE SOLUTION 500 MG/5 ML UDC GT SCH ×2 (07:55→19:02)
[2019-03-14] MEDS: MYCOPHENOLATE MOFETIL SUSP 500 MG/2.5 ML UDC GT SCH ×2 (07:55→19:01)
[2019-03-14] MEDS: HYDROCORTISONE SOD SUCCINATE 100 MG/2 ML VIAL IV SCH ×2 (08:06→19:01)
[2019-03-14] MEDS: CALCIUM ACETATE 667 MG TABLET GT SCH ×3 (08:06→19:01)
[2019-03-14] MEDS: ACYCLOVIR 200 MG CAPSULE GT SCH (08:07)
[2019-03-14] MEDS: Magnesium 1GM/D5W 100ML PREMIX 100 ML IV SCH ×2 (08:07→09:15)
[2019-03-14] MEDS: PANTOPRAZOLE 40 MG/PACK PACK GT SCH ×2 (08:07→20:52)
[2019-03-14] MEDS: ALLOPURINOL 100 MG TABLET GT SCH (08:07)
[2019-03-14] MEDS: APIXABAN 2.5 MG TABLET GT SCH ×2 (08:08→19:00)
[2019-03-14 08:14] LABS: IMMUNOGLOBULIN A, SERUM 279 mg/dL (87-352); IMMUNOGLOBULIN G, SERUM 352 mg/dL (700-1600); IMMUNOGLOBULIN M, SERUM 47 mg/dL (26-217)
[2019-03-14] MEDS ORDERED: APIXABAN 2.5 MG TABLET PO SCH (09:00)
--- NOTE | 2019-03-14 09:06 | NUR ---
received pt from assistant women's basketball coach, alert, follows commands, A fib controlled, on 3L 02 sat well, tolerates diet, f/c good output, v/s stable, no pain, pt turned and repositioned, family at the bedside.
--- NOTE | 2019-03-14 12:11 | NUR ---
pt transferred to [facility], ACLS followed, v/s stable, no pain.
[2019-03-14] MEDS: MICAFUNGIN SODIUM 100 MG in IV NS 0.9% 100 ML IV SCH (13:05)
--- NOTE | 2019-03-14 20:10 | NUR ---
RISK INVESTIGATOR RECEIVING NOTE RECEIVED PATIENT FROM [facility] ICU. REPORT TAKEN FROM MICHELLE GREENBERG. PATIENT A/O X4, NO SOB OR ACUTE DISTRESS NOTED. AFIB ON TELE. ON 3 LITERS 02 VIA NC. WAGONER INTACT AND PATENT. NOT AMBULATORY. PT EVAL PENDING. RENAL STANDARD DIET. SKIN INTACT W/ SACRAL EXCORIATION. RIJ TRIPLE LUMEN IV ACCESS INTACT AND PATENT. SAFETY MEASURES IN PLACE. BED IN LOW LOCKED POSITION, CALL LIGHT WITHIN REACH. CARE ENDORSED TO WELD FITTER RN.
--- NOTE | 2019-03-14 20:16 | NUR ---
TIRE REPAIRMAN CLOSING NOTE PATIENT IN BED. A/O X4, NO SOB OR ACUTE DISTRESS NOTED. AFIB ON TELE. ON 3 LITERS 02 VIA NC. WAGONER INTACT AND PATENT. NOT AMBULATORY. RENAL STANDARD DIET. SKIN INTACT W/ SACRAL EXCORIATION. RIJ TRIPLE LUMEN IV ACCESS INTACT AND PATENT. SAFETY MEASURES IN PLACE. BED IN LOW LOCKED POSITION, CALL LIGHT WITHIN REACH. CARE ENDORSED TO LABORER DEMOLITION RN.
--- NOTE | 2019-03-14 20:36 | NUR ---
FUSING LINE INSPECTOR RECEIVING NOTE RECEIVED PATIENT . . PATIENT A/O X4, NO SOB OR ACUTE DISTRESS NOTED. AFIB ON TELE. ON 3 LITERS 02 VIA NC. WAGONER INTACT AND PATENT. NOT AMBULATORY. PT EVAL PENDING. RENAL STANDARD DIET. SKIN INTACT W/ SACRAL EXCORIATION. RIJ TRIPLE LUMEN IV ACCESS INTACT AND PATENT. SAFETY MEASURES IN PLACE. BED IN LOW LOCKED POSITION, CALL LIGHT WITHIN REACH.WILL CONT TO MONITER.
[2019-03-15] VITALS: BP 157/81
[2019-03-15 04:00] VITALS: BP 151/91
[2019-03-15] MEDS: HYDROCODONE/APAP 5/325MG 1 EACH TABLET PO PRN ×2 (04:55→22:54)
[2019-03-15] MEDS: METRONIDAZOLE 500 MG TABLET GT SCH ×3 (05:19→21:06)
[2019-03-15] MEDS: BLOOD SUGAR DIAGNOSTIC 1 EACH STRIP IN SCH ×3 (05:20→18:05)
--- NOTE | 2019-03-15 06:06 | NUR ---
BEDSPREAD SEAMER CLOSING NOTE PATIENT A/O X3, NO SOB OR ACUTE DISTRESS NOTED. AFIB ON TELE. ON 3 LITERS 02 VIA NC. WAGONER INTACT AND PATENT. NOT AMBULATORY. ORDERED PRN PAIN MEDICATION FOR COMPLAINTS OF GENERALIZED PAIN.. RENAL STANDARD DIET. SKIN INTACT W/ SACRAL EXCORIATION. RIJ TRIPLE LUMEN IV ACCESS INTACT AND PATENT. SAFETY MEASURES IN PLACE. BED IN LOW LOCKED POSITION, CALL LIGHT WITHIN REACH.WILL ENDORSE TO AM SHIFT TO CARRY OUT PLAN OF CARE. ALL NEEDS MET.
[2019-03-15 07:07] LABS: BASOPHILS % (AUTO) 0.1 % (0.0-2.0); EOSINOPHILS % (AUTO) 0.3 % (0.0-6.0); HEMATOCRIT 23 % (33-45); HEMOGLOBIN 7.4 g/dL (11.5-14.8); LYMPHOCYTES # (AUTO) 0.7 /CMM (0.8-4.8); LYMPHOCYTES % (AUTO) 7.8 % (20.0-44.0); MEAN CORPUSCULAR HGB CONC 32 g/dl (31.0-36.0); MEAN CORPUSCULAR VOLUME 85 fL (82-100); MONOCYTES # (AUTO) 0.9 /CMM (0.1-1.30); MONOCYTES % (AUTO) 10.4 % (2.0-12.0); NEUTROPHILS # (AUTO) 7.1 /CMM (1.8-8.9); NEUTROPHILS % (AUTO) 81.4 % (43.0-81.0); PLATELET COUNT (AUTO) 57 /CMM (150-450); RED BLOOD CELL COUNT(AUTO) 2.68 MIL/uL (4.0-5.2); WHITE BLOOD COUNT (AUTO) 8.7 K/uL (4.3-11.0)
[2019-03-15 07:23] LABS: CALCIUM, SERUM 7.6 mg/dL (8.5-10.1); CREATININE 1.3 mg/dL (0.6-1.3); POTASSIUM 3.2 mmol/L (3.5-5.1)
--- NOTE | 2019-03-15 07:30 | NUR ---
RN NOTE: RECEIVED PATIENT IN BED, AWAKE, A/0 X3, ABLE TO MAKE NEEDS KNOWN. ON NASAL CANNULA WITH OXYGEN AT 3LPM. USES ACCESSORY MUSCLE ON BREATHING. DIMINISHED LUNG SOUND ON THE RIGHT LUNG YANES UPON AUSCULTATION. SATING AT 94%. CONTROLLED AFIB WITH HR ON THE 90 ON THE MONITOR. (R) IJ TRIPLE LUMEN CATHETER, INTACT AND IN PLACE. PATENT ON INFUSING. DRESSING C/D/I. WAGONER CATHETER IN PLACED WITH DRAINING VIA GRAVITY TO CLEAR YELLOW URINE. PATIENT ASSISTED ON ASSUMING COMFOTABLE HIGH FOWLERS POSITION. SAFETY MEASURES OBSERVED AND MAINTAINED. BED LOW AND LOCKED LOCKED POSITION. SRX2 RAISED. ENCOURAGE TO VERBALIZED FEELING AND CONCERNS. ENCOURAGE TO USE CALL LIGHT TO ASK FOR ASSISTANCE/ HELP. CALL LIGHT PLACED WITHIN REACH. WILL CONTINUE TO MONITOR AND ANTICIPATE NEEDS
[2019-03-15 08:00] VITALS: BP 136/83
[2019-03-15] MEDS: LEVOFLOXACIN (250MG) 250 MG TABLET GT SCH (08:31)
[2019-03-15] MEDS: cycloSPORINE SOLUTION 500 MG/5 ML UDC GT SCH ×2 (08:31→17:25)
[2019-03-15] MEDS: MYCOPHENOLATE MOFETIL SUSP 500 MG/2.5 ML UDC GT SCH ×2 (08:31→17:26)
[2019-03-15] MEDS: CALCIUM ACETATE 667 MG TABLET GT SCH ×3 (08:31→17:26)
[2019-03-15] MEDS: ACYCLOVIR 200 MG CAPSULE GT SCH (08:32)
[2019-03-15] MEDS: ALLOPURINOL 100 MG TABLET GT SCH (08:32)
[2019-03-15] MEDS: PANTOPRAZOLE 40 MG/PACK PACK GT SCH ×2 (08:33→21:06)
[2019-03-15] MEDS: HYDROCORTISONE SOD SUCCINATE 100 MG/2 ML VIAL IV SCH (08:34)
[2019-03-15] MEDS: APIXABAN 2.5 MG TABLET GT SCH ×2 (08:58→17:26)
[2019-03-15 09:33] LABS: BAND % (MANUAL) 1 % (0.0-5.0); EOSINOPHILS % (MANUAL) 2 % (0-4); LYMPHOCYTES % (MANUAL) 5 % (16-48); MONOCYTES % (MANUAL) 5 % (0-11.0); NEUTROPHILS % (MANUAL) 87 (42-76)
[2019-03-15] MEDS: POTASSIUM CHLORIDE 20 MEQ TAB.PRT.SR PO SCH ×3 (11:09→12:39)
--- NOTE | 2019-03-15 12:30 | NUR ---
RN NOTES PATIENT COMPLAINTS OF HIP PAIN, CLAIMS PAIN TO BE 8/10. REFUSED TAKING PAIN MEDICINE WHEN OFFERED. ATTENDING INFORMED AND OBTAINED ORDER FOR PELVIS AND HIP XRAY. ORDER NOTED AND CARRIED OUT
[2019-03-15] MEDS: MICAFUNGIN SODIUM 100 MG in IV NS 0.9% 100 ML IV SCH (12:38)
[2019-03-15 16:00] VITALS: BP 121/76
--- NOTE | 2019-03-15 19:38 | NUR ---
RN NOTES ENDORSED PATIENT FOR CONTINUITY OF CARE. NOT ON ANY FORM DISTRESS. NO ACUTE CHANGES WITHIN THE SHIFT. ALL NURSING NEEDS ATTENDED AND MET. SAFETY MEASURES IN PLACE AT ALL TIMES. CALL LIGHT PLACED WITHIN REACH
--- NOTE | 2019-03-15 19:55 | NUR ---
RN NOTES RECEIVED PATIENT AWAKE, ALERT, APPEARS WEAK, NO SIGNS OF ACUTE RESPIRATORY DISTRESS NOTED, SAFETY MEASURES IN PLACE, ASPIRATION PRECAUTION EMPHASIZE, IV ACCESS INTACT AND PATENT, REPOSITIONED FOR COMFORT, WILL MONITOR FOR ANY SIGNS OF BLEEDING, NO COMPLAINTS OF PAIN AT THIS TIME. WILL MONITOR ACCORDINGLY.
[2019-03-15 20:00] VITALS: BP 108/65
[2019-03-16] VITALS (10 sets, daily range): BP systolic 108–150; BP diastolic 65–86
[2019-03-16] MEDS: METRONIDAZOLE 500 MG TABLET GT SCH ×2 (05:24→14:07)
[2019-03-16] MEDS: BLOOD SUGAR DIAGNOSTIC 1 EACH STRIP IN SCH ×4 (06:42→17:36)
[2019-03-16 06:47] LABS: CALCIUM, SERUM 7.3 mg/dL (8.5-10.1); CREATININE 1.1 mg/dL (0.6-1.3); POTASSIUM 4.1 mmol/L (3.5-5.1)
--- NOTE | 2019-03-16 07:10 | NUR ---
RN OPENING NOTES PATIENT IN BED, AWAKE AND ALERT. SPEAKS UZBEK WELL. HAS A WAGONER WITH CLEAR AND YELLOW URINE. RIGHT IJ TRIPLE LUMEN WITH KCL RUNNING. PER NOC SHIFT, BLOOD SUGAR WAS ON A LOW SIDE, 63. BUT WAS GIVEN ORANGE JUICE AND BS WENT UP TO 90. PATIENT WAS SEEN BY THE WOUND CARE NURSE FOR SACRAL EXCORIATION. PATIENT HAD 1X VERY SMALL BM, BLACK IN COLOR. WILL LET MD AWARE. BED LOCKED AND IN LOWEST POSITION. CALL LIGHT WITHIN REACH. WILL CONTINUE TO MONITOR CLOSELY
[2019-03-16 07:15] LABS: BASOPHILS % (AUTO) 0.3 % (0.0-2.0); EOSINOPHILS % (AUTO) 1.4 % (0.0-6.0); LYMPHOCYTES # (AUTO) 0.7 /CMM (0.8-4.8); LYMPHOCYTES % (AUTO) 10.5 % (20.0-44.0); MEAN CORPUSCULAR HGB CONC 33 g/dl (31.0-36.0); MEAN CORPUSCULAR VOLUME 85 fL (82-100); MONOCYTES # (AUTO) 0.7 /CMM (0.1-1.30); MONOCYTES % (AUTO) 11.1 % (2.0-12.0); NEUTROPHILS # (AUTO) 4.9 /CMM (1.8-8.9); NEUTROPHILS % (AUTO) 76.7 % (43.0-81.0); PLATELET COUNT (AUTO) 51 /CMM (150-450); WHITE BLOOD COUNT (AUTO) 6.4 K/uL (4.3-11.0)
[2019-03-16 07:19] LABS: RED BLOOD CELL COUNT(AUTO) 1.88 MIL/uL (4.0-5.2)
--- NOTE | 2019-03-16 07:21 | NUR ---
RN NOTES ALL NEEDS ATTENDED AND MET, ABLE SHERMAN REST AND SLEEP AT INTERVALS, KEEP CLEAN DRY AND COMFORTABLE, LATEST BLOOD GLUCOSE IS 90 MG/DL, REPOSITIONED FOR COMFORT, WITHDREW BLOOD SPECIMEN FOR AM LAB, TO RECHECK BLOOD VALUES. ENDORSED TO AM NURSE FOR CONTINUITY OF CARE.
[2019-03-16 07:24] LABS: HEMATOCRIT 16 % (33-45); HEMOGLOBIN 5.3 g/dL (11.5-14.8)
--- NOTE | 2019-03-16 07:30 | NUR ---
RN NOTES PATIENT'S HGB LEVEL WAS 5.3. LEVEL RELAYED BY NOC SHIFT CN PHONE CALL FROM LAB. WILL LET AWARE
--- NOTE | 2019-03-16 08:08 | NUR ---
WOUND CARE CONSULT: PT PRESENTS WITH SACRAL DEEP TISSUE INJURY IN EVOLUTION AND INCONTINENCE ASSOCIATED SKIN DAMAGE TO PERIANAL AREA AND INNER LOWER BUTTOCKS. PT IS INCONTINENT OF LOOSE BLACK STOOL. PT NOTED TO HAVE VERY BONY SACRAL AREA. PT PREVIOUSLY INTUBATED AND NOTED TO HAVE MULTIPLE CO-MORBIDITIES INCLUDING ANEMIA, RECENT PNEUMONIA AND ARDS, THROMBOCYTOPENIA, BED-BOUND STATUS, FECAL INCONTINENCE AND SEVERE WEAKNESS. RECOMMENDATIONS MADE FOR SKIN PROTECTION AND WOUND CARE. DISCUSSED WITH NURSING STAFF. LOW AIRLOSS BED TO BE PLACED (ISOFLEX). CURRENT BRADERN SCORE IS 12. MD IN AGREEMENT WITH PLAN OF CARE. Addendum: 03/16/19 at 0812 by CONCHIS MONROE WNDNU Amended: Links added.
[2019-03-16 08:22] LABS: LYMPHOCYTES % (MANUAL) 10 % (16-48); MONOCYTES % (MANUAL) 11 % (0-11.0); NEUTROPHILS % (MANUAL) 79 (42-76)
[2019-03-16] MEDS: CALCIUM ACETATE 667 MG TABLET GT SCH ×2 (09:06→14:07)
[2019-03-16] MEDS: cycloSPORINE SOLUTION 500 MG/5 ML UDC GT SCH (09:06)
[2019-03-16] MEDS: ACYCLOVIR 200 MG CAPSULE GT SCH (09:06)
[2019-03-16] MEDS: MYCOPHENOLATE MOFETIL SUSP 500 MG/2.5 ML UDC GT SCH (09:06)
[2019-03-16] MEDS: PANTOPRAZOLE 40 MG/PACK PACK GT SCH (09:06)
[2019-03-16] MEDS: ALLOPURINOL 100 MG TABLET GT SCH (09:06)
[2019-03-16] MEDS: HYDROCORTISONE SOD SUCCINATE 100 MG/2 ML VIAL IV SCH (09:07)
--- NOTE | 2019-03-16 09:49 | NUR ---
RN NOTES ARNULFO TREVIÑO ORDERED 1 UNIT OF RBC AND ERIKA BRYANT. WILL ORDER H&H AFTER 2 HOURS OF BLOOD TRANSFUSION
[2019-03-16 12:29] LABS: IRON, SERUM 44 ug/dl (50-175); TOTAL IRON BINDING CAPACITY 57 ug/dl (250-450)
--- NOTE | 2019-03-16 13:00 | NUR ---
RN NOTES PATIENT IS HAVING BLOOD TRANSFUSION AT THIS TIME. PATIENT HAS FLAGYL AND MYCAMINE DUE AT 1300, CALLED PHARMACY AND ADVISED TO GIVE IV MEDS AFTER TRANSFUSION
[2019-03-16 13:03] LABS: FERRITIN 1662 ng/mL (8-388)
--- NOTE | 2019-03-16 15:10 | NUR ---
RN NOTES BLOOD TRANSFUSION DONE. NO REACTION NOTED. VITAL SIGNS STABLE THROUGHOUT
--- NOTE | 2019-03-16 15:37 | NUR ---
RN NOTES PATIENT HAD A LARGE BM, BLACK STOOL. DR MCCALL MADE AWARE AND ORDERED TO HAVE PATIENT NPO AFTER MIDNIGHT TONIGHT FOR A POSSIBLE EGD TOMORROW. AND MADE SURE PATIENT IS ON PROTONIX 40 MG
[2019-03-16] MEDS: MICAFUNGIN SODIUM 100 MG in IV NS 0.9% 100 ML IV SCH (15:43)
[2019-03-16] MEDS: MYCOPHENOLATE MOFETIL 250 MG CAPSULE PO SCH (16:20)
--- NOTE | 2019-03-16 16:49 | NUR ---
RN NOTES PATIENT AND AT BEDSIDE WAS COMPLAINING THAT PATIENT IS HAVING A HARD TIME SWALLOWING FOOD, EVEN WITH SOFT DIET. RECOMMENDED IF THEY WANT ME TO SWITCH IT TO PUREED, REFUSED. PATIENT WAS ABLE TO SWALLOW FRUIT CUP AND APPLE SAUCE. PATIENT SAID SHE FEELS LIKE THERE'S SOMETHING IN HER THROAT AND MAKES FACIAL GRIMACING EVERY TIME SHE SWALLOWS. MD MADE AWARE AND OK'D TO ORDER ANOTHER SWALLOW EVAL.
--- NOTE | 2019-03-16 17:03 | NUR ---
INITIAL FINDINGS OF DUPLEX VENOUS LOWER EXT BILATERAL TEST SHOWED POSITIVE FOR THROMBUS AT BILATERAL GSV, RT CFV, RT SFV, RT SFVM, LT CFV. ADVISED ATTENDING RN MICHAEL OF RESULTS.
[2019-03-16] MEDS: CALCIUM ACETATE 667 MG TABLET PO SCH (17:29)
[2019-03-16 17:38] LABS: BASOPHILS % (AUTO) 0.2 % (0.0-2.0); EOSINOPHILS % (AUTO) 0.1 % (0.0-6.0); HEMATOCRIT 23 % (33-45); HEMOGLOBIN 7.6 g/dL (11.5-14.8); LYMPHOCYTES # (AUTO) 0.2 /CMM (0.8-4.8); LYMPHOCYTES % (AUTO) 3.6 % (20.0-44.0); MEAN CORPUSCULAR HGB CONC 33 g/dl (31.0-36.0); MEAN CORPUSCULAR VOLUME 87 fL (82-100); MONOCYTES # (AUTO) 0.3 /CMM (0.1-1.30); NEUTROPHILS # (AUTO) 5.1 /CMM (1.8-8.9); NEUTROPHILS % (AUTO) 91.1 % (43.0-81.0); PLATELET COUNT (AUTO) 60 /CMM (150-450); RED BLOOD CELL COUNT(AUTO) 2.65 MIL/uL (4.0-5.2); WHITE BLOOD COUNT (AUTO) 5.6 K/uL (4.3-11.0)
--- NOTE | 2019-03-16 17:58 | NUR ---
RN NOTES GOT THE RESULTS FOR US LOWER EXTREMITIES VENOUS NON OCCLUSIVE DEEP VENOUS THROMBOSIS IN LEFT AND RIGHT COMMON FEMORAL NON OCCLUSIVE SUPERFICIAL VENOUS THROMBOSIS VISUALIZED BILATERAL GREATER VENOUS VEINS DR TELLO AWARE.
[2019-03-16 18:00] LABS: BAND % (MANUAL) 21 % (0.0-5.0); LYMPHOCYTES % (MANUAL) 7 % (16-48); MONOCYTES % (MANUAL) 8 % (0-11.0); NEUTROPHILS % (MANUAL) 64 (42-76)
--- NOTE | 2019-03-16 19:01 | NUR ---
RN CLOSING NOTES PATIENT IN BED AWAKE AND ALERT. FAMILY AT BEDSIDE, PENDING FOR SWALLOW EVAL. POSSIBLE EGD TOMORROW AND DR GALARZA TO INSERT A FILTER FOR DVT. VSS THROUGHOUT THE SHIFT. BED LOCKED AND IN LOWEST POSITION. CALL LIGHT WITHIN REACH. WILL ENDORSE TO NOC SHIFT FOR CHELLE. ALL CONSENT FORMS SIGNED IN CHART
[2019-03-16] MEDS: IV NS 0.9% 1,000 ML IV PRN (19:16)
[2019-03-16 19:56] LABS: OCCULT BLOOD STOOL POSITIVE (NEGATIVE)
[2019-03-16] MEDS ORDERED: METRONIDAZOLE 500 MG TABLET PO SCH (21:00)
[2019-03-16] MEDS: PANTOPRAZOLE 40 MG TABLET.DR PO SCH (22:02)
--- NOTE | 2019-03-16 23:14 | NUR ---
RN NOTE PATIENT WILL BE NPO AFTER MIDNIGHT, PATIENT IS AWARE
[2019-03-17] MEDS: DEXTROSE 50%-WATER 50 ML DISP.SYRIN IVP PRN ×2 (01:02→05:16)
[2019-03-17] MEDS: BLOOD SUGAR DIAGNOSTIC 1 EACH STRIP IN SCH ×5 (01:03→23:59)
[2019-03-17 04:00] VITALS: BP 128/70
--- NOTE | 2019-03-17 05:30 | NUR ---
RN NOTE NOTIFIED DOCTOR ANDONIAN REGARDING BLOOD SUGAR OF 66, NO NEW ORDERS GIVEN AT THIS TIME
[2019-03-17 06:11] LABS: *SPE A/G RATIO 1.8 (0.7-1.7); *SPE ALBUMIN 2.5 g/dL (2.9-4.4); *SPE ALPHA-1-GLOBULIN 0.2 g/dL (0.0-0.4); *SPE ALPHA-2-GLOBULIN 0.5 g/dL (0.4-1.0); *SPE BETA GLOBULIN 0.5 g/dL (0.7-1.3); *SPE GLOBULIN, TOTAL 1.4 g/dL (2.2-3.9); *SPE M-SPIKE Not Observed g/dL (Not Observed); *SPEGAMMA GLOBULIN 0.2 g/dL (0.4-1.8)
[2019-03-17 06:40] LABS: BASOPHILS % (AUTO) 0.5 % (0.0-2.0); HEMATOCRIT 22 % (33-45); HEMOGLOBIN 7.1 g/dL (11.5-14.8); LYMPHOCYTES # (AUTO) 0.5 /CMM (0.8-4.8); LYMPHOCYTES % (AUTO) 10.4 % (20.0-44.0); MEAN CORPUSCULAR HGB CONC 33 g/dl (31.0-36.0); MEAN CORPUSCULAR VOLUME 88 fL (82-100); MONOCYTES # (AUTO) 0.6 /CMM (0.1-1.30); MONOCYTES % (AUTO) 11.6 % (2.0-12.0); NEUTROPHILS % (AUTO) 76.5 % (43.0-81.0); PLATELET COUNT (AUTO) 58 /CMM (150-450); RED BLOOD CELL COUNT(AUTO) 2.45 MIL/uL (4.0-5.2); WHITE BLOOD COUNT (AUTO) 5.2 K/uL (4.3-11.0)
[2019-03-17 06:47] LABS: CREATININE 1.1 mg/dL (0.6-1.3); POTASSIUM 3.9 mmol/L (3.5-5.1)
--- NOTE | 2019-03-17 07:53 | NUR ---
RECREATION THERAPY AIDE OPENING NOTES PATIENT RECEIVED IN BED AWAKE AND ALERT. FAMILY AT BEDSIDE, PENDING FOR SWALLOW EVAL. SCHEDULED FOR EGD TODAY. NPO STATUS UNTIL EGD COMPLETE. DR GALARZA TO INSERT A FILTER FOR DVT. NO SOB OR ACUTE DISTRESS NOTED. RIJ TRIPLE LUMEN INTACT AND PATENT. SAFETY MEASURES IN PLACE. BED LOCKED AND IN LOWEST POSITION. CALL LIGHT WITHIN REACH. WILL CONTINUE TO MONITOR. ALL CONSENT FORMS SIGNED IN CHART
[2019-03-17 08:00] VITALS: BP 133/72
[2019-03-17] MEDS: PANTOPRAZOLE 40 MG TABLET.DR PO SCH ×3 (08:39→21:21)
[2019-03-17] MEDS: HYDROCORTISONE SOD SUCCINATE 100 MG/2 ML VIAL IV SCH (08:40)
[2019-03-17] MEDS: MYCOPHENOLATE MOFETIL 250 MG CAPSULE PO SCH ×3 (08:40→16:30)
[2019-03-17] MEDS: ACYCLOVIR 200 MG CAPSULE PO SCH ×2 (08:40→15:25)
[2019-03-17] MEDS: LEVOFLOXACIN (250MG) 250 MG TABLET PO SCH ×2 (08:41→15:20)
[2019-03-17] MEDS: CALCIUM ACETATE 667 MG TABLET PO SCH ×4 (08:41→18:00)
[2019-03-17] MEDS: ALLOPURINOL 100 MG TABLET PO SCH ×2 (08:41→15:25)
[2019-03-17 09:01] LABS: BAND % (MANUAL) 1 % (0.0-5.0); LYMPHOCYTES % (MANUAL) 6 % (16-48); MONOCYTES % (MANUAL) 10 % (0-11.0); NEUTROPHILS % (MANUAL) 83 (42-76)
[2019-03-17] MEDS: IV NS 0.9% 1,000 ML IV PRN (09:47)
[2019-03-17] MEDS: MICAFUNGIN SODIUM 100 MG in IV NS 0.9% 100 ML IV SCH (14:15)
[2019-03-17 15:19] LABS: HEMATOCRIT 22 % (33-45); HEMOGLOBIN 7.1 g/dL (11.5-14.8); MEAN CORPUSCULAR HGB CONC 33 g/dl (31.0-36.0); MEAN CORPUSCULAR VOLUME 88 fL (82-100); PLATELET COUNT (AUTO) 60 /CMM (150-450); RED BLOOD CELL COUNT(AUTO) 2.46 MIL/uL (4.0-5.2); WHITE BLOOD COUNT (AUTO) 5.3 K/uL (4.3-11.0)
[2019-03-17 16:00] VITALS: BP 128/80
[2019-03-17] MEDS ORDERED: FENTANYL PF 100MCG/2ML AMPUL ONE (16:50)
[2019-03-17] MEDS ORDERED: MIDAZOLAM HCL 2 MG/2ML VIAL ONE (16:50)
[2019-03-17] MEDS ORDERED: FAMOTIDINE/PF INJ 20 MG/2 ML VIAL IV ONE (16:51)
[2019-03-17] MEDS ORDERED: SUCCINYLCHOLINE CHLORIDE 20 MG/ML VIAL ONE (16:51)
[2019-03-17] MEDS ORDERED: ANESTHESIA TRAY IN PYXIS 1 EA TRAY MC ONE (16:53)
[2019-03-17] MEDS ORDERED: LIDOCAINE HCL/PF 1% 30 ML SDV ONE (16:53)
[2019-03-17] MEDS ORDERED: IOHEXOL 50 ML IV ONE (18:06)
--- NOTE | 2019-03-17 19:43 | NUR ---
RECIEVED PT FROM POST OPP IVC 3 HR 97 TEMP. PROMOTIONAL REPRESENTATIVE 144/73 VITALS STABLE. NO PAIN REPORTED FROM THE PATIENT. WILL CONTIUE TO MOINTER AND TAKE VITALS Q`15 POST OPP RIGHT GROIN. FOR BLEEDING
--- NOTE | 2019-03-17 19:45 | NUR ---
STEEL ERECTING PUSHER CLOSING NOTES PATIENT ENDORSED TO HANDBAG FINISHER RN WHILE PATIENT IN SCHEDULED SURGERY FOR IVC PLACEMENT. NO SIGNIFICANT CHANGES IN PATIENT CONDITION DURING SHIFT. NPO STATUS MAINTAINED AND ALL PO MEDICATIONS HELD TODAY D/T SAID NPO STATUS. NO SOB OR ACUTE DISTRESS NOTED THROUGHOUT SHIFT. RIJ TRIPLE LUMEN IV INTACT AND PATENT. ALL CONSENT FORMS SIGNED AND IN CHART. CARE ENDORSED TO HANDBAG FINISHER RN.
--- NOTE | 2019-03-17 19:58 | NUR ---
TIRE INSPECTOR POST OPP MONITERING: NO BLEEDING NOTED- RIGHT GROIN. VITALS STABLE
[2019-03-17 20:00] VITALS: BP 144/73
--- NOTE | 2019-03-17 20:12 | NUR ---
GSA COORDINATOR POST OPP MONITERING: NO BLEEDING NOTED- RIGHT GROIN. VITALS STABLE
[2019-03-18 04:00] VITALS: BP 150/85
[2019-03-18] MEDS: BLOOD SUGAR DIAGNOSTIC 1 EACH STRIP IN SCH ×3 (05:54→18:13)
[2019-03-18 06:22] LABS: BASOPHILS % (AUTO) 0.2 % (0.0-2.0); HEMATOCRIT 25 % (33-45); HEMOGLOBIN 8.2 g/dL (11.5-14.8); LYMPHOCYTES # (AUTO) 0.2 /CMM (0.8-4.8); LYMPHOCYTES % (AUTO) 4.6 % (20.0-44.0); MEAN CORPUSCULAR HGB CONC 33 g/dl (31.0-36.0); MEAN CORPUSCULAR VOLUME 89 fL (82-100); MONOCYTES # (AUTO) 0.1 /CMM (0.1-1.30); MONOCYTES % (AUTO) 2.9 % (2.0-12.0); NEUTROPHILS # (AUTO) 3.1 /CMM (1.8-8.9); NEUTROPHILS % (AUTO) 92.3 % (43.0-81.0); PLATELET COUNT (AUTO) 70 /CMM (150-450); RED BLOOD CELL COUNT(AUTO) 2.79 MIL/uL (4.0-5.2); WHITE BLOOD COUNT (AUTO) 3.4 K/uL (4.3-11.0)
[2019-03-18 06:27] LABS: CALCIUM, SERUM 7.2 mg/dL (8.5-10.1); CREATININE 0.9 mg/dL (0.6-1.3); PHOSPHORUS 4.5 mg/dL (2.5-4.9); POTASSIUM 4.7 mmol/L (3.5-5.1)
--- NOTE | 2019-03-18 06:27 | NUR ---
rn notes in bed lying comfortably with eyes close. no distress noted. breathing even and unlabored. on 3 lpm via nasal cannula tolerating well. alert and oriented. no complaint of pain or discomfort. needs attended. kept clean and dry.
[2019-03-18 06:31] LABS: MAGNESIUM 1.2 mg/dL (1.8-2.4)
[2019-03-18] MEDS: IV NS 0.9% 1,000 ML IV PRN (06:34)
--- NOTE | 2019-03-18 07:15 | NUR ---
INITIAL: Pt in bed lying comfortably with watching TV. no distress noted. breathing even and unlabored. on 3 lpm via nasal cannula tolerating well. alert and oriented. no complaint of pain or discomfort. pt has right IJ infusing 75 ml ns clean dry intact will continue to monitor.
[2019-03-18] MEDS: CALCIUM ACETATE 667 MG TABLET PO SCH ×3 (07:32→18:15)
[2019-03-18] MEDS: MYCOPHENOLATE MOFETIL 250 MG CAPSULE PO SCH ×2 (07:33→16:39)
[2019-03-18 08:00] VITALS: BP 142/66
[2019-03-18] MEDS: PANTOPRAZOLE 40 MG TABLET.DR PO SCH ×2 (08:32→20:51)
[2019-03-18] MEDS: ALLOPURINOL 100 MG TABLET PO SCH (08:32)
[2019-03-18] MEDS: ACYCLOVIR 200 MG CAPSULE PO SCH (08:32)
[2019-03-18] MEDS: HYDROCORTISONE SOD SUCCINATE 100 MG/2 ML VIAL IV SCH (08:32)
[2019-03-18 08:50] LABS: BAND % (MANUAL) 3 % (0.0-5.0); EOSINOPHILS % (MANUAL) 1 % (0-4); LYMPHOCYTES % (MANUAL) 6 % (16-48); MONOCYTES % (MANUAL) 3 % (0-11.0); NEUTROPHILS % (MANUAL) 87 (42-76)
[2019-03-18] MEDS: FUROSEMIDE 40 MG/4 ML VIAL IV SCH ×2 (10:04→13:49)
[2019-03-18] MEDS: Magnesium 1GM/D5W 100ML PREMIX 100 ML IV SCH ×4 (10:04→23:14)
[2019-03-18 12:00] VITALS: BP 142/66
[2019-03-18] MEDS: MICAFUNGIN SODIUM 100 MG in IV NS 0.9% 100 ML IV SCH (12:27)
[2019-03-18] MEDS ORDERED: NEPRO VAN 237 ML CAN PO PRN (13:30)
[2019-03-18 16:00] VITALS: BP 136/85
--- NOTE | 2019-03-18 17:58 | NUR ---
CLOSING PATIENT IN BED AWAKE AND ALERT. FAMILY AT BEDSIDE, S/P IVC FILTER PLACED 03/17.. POSSIBLE EGD TOMORROW (03/19) CONSENT SIGNED VSS THROUGHOUT THE SHIFT. BED LOCKED AND IN LOWEST POSITION. CALL LIGHT WITHIN REACH. PT UP IN CHAIR TODAY X 2 HOURS WILL ENDORSE TO PM RN SHIFT FOR CONTINUITY OF CARE. ALL CONSENT FORMS SIGNED IN CHART
--- NOTE | 2019-03-18 19:20 | NUR ---
RN PM OPENGING NOTE. BEDSIDE REPORT RECIEVED FROM DE MARTINEZ. PATIENT IN BED AWAKE AND ALERT. FAMILY AT BEDSIDE. PATIENT HAD S/P IVC FILTER PLACED 03/17. SCHEDULED FOR EGD TOMORROW (03/19) CONSENT REVIEWED AND IS SIGNED WITNESSED AND IN CHART. BED LOCKED AND IN LOWEST POSITION. CALL LIGHT WITHIN REACH.
--- NOTE | 2019-03-18 19:55 | NUR ---
PATIENT HR HIGH 121;PT REPORTS FLUTTERY CHEST PAGED INTERN PRODUCT MARKETING MANAGER BLEACH RANGE OPERATOR SUSAN INFORMED OF PATIENT CONDITION. REVIEWED LABS AND VS. NEW ORDERS FOR TRANSFER TO TELELEMETRY, STAT EKG, STAT LABS RECIEVED.
[2019-03-18 20:00] VITALS: BP 127/81
[2019-03-18 20:38] LABS: HEMOGLOBIN 7.5 g/dL (11.5-14.8)
[2019-03-18 21:07] LABS: CALCIUM, SERUM 7.9 mg/dL (8.5-10.1); CREATININE 1.1 mg/dL (0.6-1.3); POTASSIUM 3.2 mmol/L (3.5-5.1)
[2019-03-18 21:13] LABS: ALBUMIN 2.3 g/dL (3.4-5.0); BILIRUBIN,TOTAL 1.5 mg/dL (0.2-1.0); TOTAL PROTEIN, SERUM 4.6 g/dL (6.4-8.2)
--- NOTE | 2019-03-18 21:40 | NUR ---
chelsea notified of stat lab results/ new orders. sharon tran notified of stat lab order results. updated with patients recent vs. new orders to give supplemental magnesium and potassium recieved.
[2019-03-18] MEDS: POTASSIUM CL. PREMIX PERIPHER. 50 ML IV SCH ×2 (22:07→23:14)
[2019-03-18] MEDS: METOPROLOL TARTRATE 25 MG TABLET PO SCH (22:28)
[2019-03-19] VITALS: BP 133/99
[2019-03-19] MEDS: POTASSIUM CL. PREMIX PERIPHER. 50 ML IV SCH ×2 (00:36→02:13)
[2019-03-19] MEDS: Magnesium 1GM/D5W 100ML PREMIX 100 ML IV SCH ×2 (00:36→02:13)
[2019-03-19] MEDS: BLOOD SUGAR DIAGNOSTIC 1 EACH STRIP IN SCH ×4 (00:37→17:18)
--- NOTE | 2019-03-19 00:44 | NUR ---
metoprolol held new medication order for metoprolol held since first dose administered at 2228. too close to last administered time. current hr of patient is 109 per tele monitor.
[2019-03-19 04:00] VITALS: BP 132/69
[2019-03-19] MEDS: METOPROLOL TARTRATE 25 MG TABLET PO SCH ×4 (05:21→17:50)
[2019-03-19 06:37] LABS: BASOPHILS % (AUTO) 0.4 % (0.0-2.0); EOSINOPHILS % (AUTO) 0.5 % (0.0-6.0); HEMATOCRIT 23 % (33-45); HEMOGLOBIN 7.5 g/dL (11.5-14.8); LYMPHOCYTES # (AUTO) 0.7 /CMM (0.8-4.8); LYMPHOCYTES % (AUTO) 11.1 % (20.0-44.0); MEAN CORPUSCULAR HGB CONC 34 g/dl (31.0-36.0); MEAN CORPUSCULAR VOLUME 88 fL (82-100); MONOCYTES # (AUTO) 0.7 /CMM (0.1-1.30); MONOCYTES % (AUTO) 10.1 % (2.0-12.0); NEUTROPHILS # (AUTO) 5.1 /CMM (1.8-8.9); NEUTROPHILS % (AUTO) 77.9 % (43.0-81.0); PLATELET COUNT (AUTO) 74 /CMM (150-450); RED BLOOD CELL COUNT(AUTO) 2.57 MIL/uL (4.0-5.2); WHITE BLOOD COUNT (AUTO) 6.5 K/uL (4.3-11.0)
[2019-03-19 06:55] LABS: ALBUMIN 2.2 g/dL (3.4-5.0); BILIRUBIN,TOTAL 1.4 mg/dL (0.2-1.0); CALCIUM, SERUM 7.5 mg/dL (8.5-10.1); MAGNESIUM 2.4 mg/dL (1.8-2.4); POTASSIUM 3.5 mmol/L (3.5-5.1); TOTAL PROTEIN, SERUM 4.5 g/dL (6.4-8.2)
[2019-03-19] MEDS: MYCOPHENOLATE MOFETIL 250 MG CAPSULE PO SCH ×2 (07:30→16:43)
--- NOTE | 2019-03-19 07:35 | NUR ---
RN OPENING NOTES RECEIVED PATIENT IN BED SLEEPING COMFORTABLY. EASILY AROUSABLE. ABLE TO MAKE NEEDS KNOWN. NO PAIN OR ACUTE DISTRESS AT THIS TIME. SKIN IS DRY WARM TO TOUCH. PATIENT NOTED WITH RIJ TRIPLE LUMEN. INTACT AND PATENT. FLUSHING WELL. NO S/S OF INFECTION OR INFILTRATION. NPO MAINTAINED DUE TO PATIENT GOING FOR EGD THIS MORNING. CONSENT REVIEWED AND IS SIGNED WITNESSED AND IN CHART. ALL NEEDS ANTICIPATED. KEPT CLEAN AND DRY. CALL LIGHT WITHIN REACHED. BED LOCKED AND IN LOWEST POSITION. SAFETY MAINTAINED. PLAN OF CARE DISCUSSED. WILL CONTINUE TO MONITOR CLOSELY.
[2019-03-19 07:57] LABS: EOSINOPHILS % (MANUAL) 1 % (0-4); LYMPHOCYTES % (MANUAL) 13 % (16-48); MONOCYTES % (MANUAL) 7 % (0-11.0); NEUTROPHILS % (MANUAL) 79 (42-76)
[2019-03-19 08:00] VITALS: BP 121/86
[2019-03-19] MEDS: CALCIUM ACETATE 667 MG TABLET PO SCH ×3 (08:00→17:53)
--- NOTE | 2019-03-19 08:00 | NUR ---
RN NOTES ALL SCHEDULED PO MEDS FOR 7:30,8:00,9:00 WAS NOT GIVEN DUE TO PATIENT BEING NPO AND TO HAVE AN EGD PROCEDURE THIS MORNING. PATIENT REMAINS IN STABLE CONDITION. WILL CONTINUE TO MONITOR.
[2019-03-19] MEDS: LEVOFLOXACIN (250MG) 250 MG TABLET PO SCH (09:00)
[2019-03-19] MEDS: ALLOPURINOL 100 MG TABLET PO SCH (09:00)
[2019-03-19] MEDS: PANTOPRAZOLE 40 MG TABLET.DR PO SCH ×2 (09:00→20:43)
[2019-03-19] MEDS: ACYCLOVIR 200 MG CAPSULE PO SCH (09:00)
[2019-03-19] MEDS: FUROSEMIDE 40 MG/4 ML VIAL IV SCH ×2 (09:09→13:22)
[2019-03-19] MEDS: HYDROCORTISONE SOD SUCCINATE 100 MG/2 ML VIAL IV SCH (09:10)
[2019-03-19 12:00] VITALS: BP 125/81
--- NOTE | 2019-03-19 12:04 | NUR ---
RN NOTES MEDICATION METOPROLOL WAS HELD DUE TO PATIENT BEING NPO PRIOR TO HER GOING TO HER EGD PROCEDURE. REMAINS IN STABLE CONDITION. WILL CONTINUE TO MONITOR.
[2019-03-19] MEDS: MICAFUNGIN SODIUM 100 MG in IV NS 0.9% 100 ML IV SCH (13:22)
--- NOTE | 2019-03-19 13:37 | NUR ---
RN NOTES MEDICATION PHOSLO WAS HELD DUE TO PATIENT BEING NPO. PATIENT WAS PICKED UP TO DO EGD. FAMILY MEMBER AT BEDSIDE. PATIENT IN STABLE CONDITION UPON LEAVING THE UNIT. WILL AWAIT FOR THE PATIENT'S RETURN.
--- NOTE | 2019-03-19 14:45 | NUR ---
RN NOTES RECEIVED ORDERS AFTER THE PROCEDURE TO RESUME PRE-OP ORDERS AND TO RESUME PREVIOUS DIET. PATIENT REMAINS IN STABLE CONDITION. WILL CONTINUE TO MONITOR.
--- NOTE | 2019-03-19 16:01 | NUR ---
MICHELLE NOTES WAS ABLE TO RETRIEVE THE FAX NUMBER OF [facility]OR[facility] OF [facility]. THE AUTHORIZATION AND CONSENT FOR THE RESULTS OF COLONOSCOPY WAS FAXED TO [facility]. CONFIRMATION WAS PLACED IN THE CHART ALONG WITH THE AUTHORIZATION AND CONSENT. AWAITING FOR [facility] TO FAX BACK THE RECORDS.
--- NOTE | 2019-03-19 17:52 | NUR ---
RN NOTES MEDICATION LOPRESSOR WAS HELD DUE TO PATIENT'S B/P OF 96/71. PATIENT REMAINS IN STABLE CONDITION. WILL CONTINUE TO MONITOR CLOSELY.
--- NOTE | 2019-03-19 19:06 | NUR ---
RN NOTES PATIENT IN BED AWAKE, ALERT AND ABLE TO MAKE NEEDS KNOWN. NO PAIN OR ACUTE DISTRESS AT THIS TIME. RESPIRATION EVEN AND UNLABORED. SKIN IS DRY WARM TO TOUCH. PATIENT WAS ABLE TO TOLERATE MEALS AND MEDS WELL. IV ACCESS ON THE RIJ INTACT AND PATENT. FLUSHING WELL. NO S/S OR INFECTION AND INFILTRATION. PATIENT WAS ALSO ABLE TO TOLERATE EGD PROCEDURE WELL. WAGONER CATH IN PLACE DRAINING CLEAR YELLOW URINE. NO ACUTE CHANGES NOTED DURING THE SHIFT. PROVIDED COMFORT AND SAFETY. KEPT CLEAN AND DRY. CALL LIGHT WITHIN REACHED. BED LOCKED AND IN LOWEST POSITION. WILL CONTINUE TO MONITOR. WILL ENDORSE TO PM NURSE FOR CONTINUITY OF CARE.
--- NOTE | 2019-03-19 19:26 | NUR ---
MS/RN NOTES PATIENT IN BED AWAKE, RESTING COMFORTABLY AT THIS TIME. NO S/S OF ACUTE DISTRESS NOTED. RESP EVEN AND UNLABORED. PATENT A/O X1 , ABLE TO MAKE NEEDS KNOWN. DENIES ANY PAIN OR DISCOMFORT AT THIS TIME. SKIN IS DRY WARM TO TOUCH. IV ACCESS ON THE RIJ INTACT AND PATENT. FLUSHING WELL. NO S/S OF INFECTION NOTED AT THE SITE. WAGONER CATH IN PLACE, PATENT, DRAINING CLEAR YELLOW URINE. SAFETY MAINTAINED, BED AT THE LOWEST SETTINGS, LOCKED. CALL LIGHT WITHIN REACH. WILL CONTINUE TO MONITOR PATIENT PER PLAN OF CARE.
[2019-03-19 20:00] VITALS: BP_SYST 132; BP_SYST 154; BP_DIAS 72; BP_DIAS 93
[2019-03-20] VITALS (8 sets, daily range): BP systolic 115–151; BP diastolic 78–99
[2019-03-20] MEDS: BLOOD SUGAR DIAGNOSTIC 1 EACH STRIP IN SCH ×4 (00:15→18:08)
--- NOTE | 2019-03-20 00:29 | NUR ---
M/S RN NOTES METOPROLOL NOT GIVEN DUE TO SBP <110 SBP 102
[2019-03-20] MEDS: METOPROLOL TARTRATE 25 MG TABLET PO SCH ×4 (05:39→18:21)
--- NOTE | 2019-03-20 06:47 | NUR ---
MS/RN NOTES PATIENT IN BED AWAKE, RESTING COMFORTABLY AT THIS TIME. NO S/S OF ACUTE DISTRESS NOTED. RESP EVEN AND UNLABORED. DENIES ANY PAIN OR DISCOMFORT AT THIS TIME. IV ACCESS ON THE RIJ INTACT AND PATENT. FLUSHING WELL. NO S/S OF INFECTION NOTED AT THE SITE. WAGONER CATH IN PLACE, PATENT, DRAINING CLEAR YELLOW URINE. SAFETY MAINTAINED, BED AT THE LOWEST SETTINGS, LOCKED. CALL LIGHT WITHIN REACH. WILL ENDORSE TO AM SHIFT NURSE FOR CHELLE.
[2019-03-20 07:13] LABS: CALCIUM, SERUM 7.1 mg/dL (8.5-10.1); CREATININE 1.1 mg/dL (0.6-1.3); PHOSPHORUS 3.3 mg/dL (2.5-4.9); POTASSIUM 3.3 mmol/L (3.5-5.1)
[2019-03-20 07:21] LABS: BASOPHILS % (AUTO) 0.7 % (0.0-2.0); EOSINOPHILS % (AUTO) 1.1 % (0.0-6.0); HEMATOCRIT 21 % (33-45); LYMPHOCYTES # (AUTO) 0.8 /CMM (0.8-4.8); LYMPHOCYTES % (AUTO) 17.7 % (20.0-44.0); MEAN CORPUSCULAR HGB CONC 33 g/dl (31.0-36.0); MEAN CORPUSCULAR VOLUME 88 fL (82-100); MONOCYTES # (AUTO) 0.5 /CMM (0.1-1.30); MONOCYTES % (AUTO) 12.4 % (2.0-12.0); NEUTROPHILS # (AUTO) 2.9 /CMM (1.8-8.9); NEUTROPHILS % (AUTO) 68.1 % (43.0-81.0); PLATELET COUNT (AUTO) 63 /CMM (150-450); RED BLOOD CELL COUNT(AUTO) 2.35 MIL/uL (4.0-5.2); WHITE BLOOD COUNT (AUTO) 4.3 K/uL (4.3-11.0)
--- NOTE | 2019-03-20 07:30 | NUR ---
RECEIVED CRITICAL LAB VALUE FROM ZULEYAM. HGB 6.8.
[2019-03-20 07:31] LABS: HEMOGLOBIN 6.8 g/dL (11.5-14.8)
--- NOTE | 2019-03-20 07:35 | NUR ---
BP 127/78, HR 104. PATIENT DENIES DIZZINESS. HEAD TO TOE ASSESSMENT REVEALS NO SIGNS OF EXTERNAL BLEEDING. NO BLOOD PER RECTUM.
--- NOTE | 2019-03-20 07:50 | NUR ---
NOTIFIED RIVERA HARKINS, RECEIVED ORDER FOR 1 UNIT RBC
[2019-03-20] MEDS: ACYCLOVIR 200 MG CAPSULE PO SCH (08:11)
[2019-03-20] MEDS: ALLOPURINOL 100 MG TABLET PO SCH (08:11)
[2019-03-20] MEDS: MYCOPHENOLATE MOFETIL 250 MG CAPSULE PO SCH ×2 (08:11→18:23)
[2019-03-20] MEDS: PANTOPRAZOLE 40 MG TABLET.DR PO SCH (08:11)
[2019-03-20] MEDS: CALCIUM ACETATE 667 MG TABLET PO SCH ×3 (08:11→18:16)
[2019-03-20] MEDS: HYDROCORTISONE SOD SUCCINATE 100 MG/2 ML VIAL IV SCH (08:12)
--- NOTE | 2019-03-20 08:20 | NUR ---
CONSENT FOR BLOOD TRANSFUSION SIGNED. AWAITING TO FOOT ORTHOPEDIST BLOOD
[2019-03-20 09:24] LABS: BAND % (MANUAL) 1 % (0.0-5.0); LYMPHOCYTES % (MANUAL) 22 % (16-48); MONOCYTES % (MANUAL) 7 % (0-11.0); NEUTROPHILS % (MANUAL) 70 (42-76)
[2019-03-20] MEDS ORDERED: POTASSIUM CHLORIDE 20 MEQ TAB.PRT.SR PO SCH (10:00)
[2019-03-20] MEDS: FUROSEMIDE 40 MG/4 ML VIAL IV SCH ×2 (11:04→15:06)
[2019-03-20] MEDS: POTASSIUM CHLORIDE 20 MEQ POWDER PACKET PO SCH ×6 (11:05→18:08)
--- NOTE | 2019-03-20 11:34 | NUR ---
WOUND CARE FOLLOWUP: PT SEEN FOR SACRAL DEEP TISSUE INJURY IN EVOLUTION AND PERIANAL/BUTTOCK INCONTINENCE ASSOCIATED SKIN DAMAGE. PT CONTINUES TO BE INCONTINENT OF STOOL WHICH IS SOMETIMES LOOSE. PT IS VERY THIN AND BONY BUT NOW NOTED TO HAVE GENERALIZED PITTING EDEMA. 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 SUTURE NOTED TO RT GROIN AREA. RECOMMENDATIONS MADE FOR SKIN PROTECTION AND WOUND CARE. DISCUSSED WITH NURSING STAFF. WILL SEE PRN. PT ON FIRST STEP ISAAC BUTLER MD IN AGREEMENT WITH PLAN OF CARE. Addendum: 03/20/19 at 1138 by CONCHIS MONROE WNDNU Amended: Links added.
--- NOTE | 2019-03-20 12:40 | NUR ---
BEGAN BLOOD TRANSFUSION PER ORDER. SEE TRANSFUSION DOCUMENTATION FOR VITALS
[2019-03-20] MEDS: DIGOXIN INJ 0.5 MG/2 ML AMPUL IV SCH ×2 (13:02→18:21)
--- NOTE | 2019-03-20 13:02 | NUR ---
PATIENT PLACED ON MONITOR, DIGOXIN BEING ADMINISTERED PER MD ORDER. APICAL HR 138
[2019-03-20] MEDS: HYDROGEL DRESSING 90 GM TUBE TP PRN (15:07)
[2019-03-20] MEDS ORDERED: FUROSEMIDE 40 MG/4 ML VIAL IV SCH (15:30)
--- NOTE | 2019-03-20 16:40 | NUR ---
TOLERATED TRANSFUSION WELL. NO S/S REACTION. PATIENT EDUCATED ON SYMPTOMS TO REPORT. WILL CONTINUE TO MONITOR.
[2019-03-20] MEDS: HYDROGEL DRESSING 90 GM TUBE TP SCH (18:16)
--- NOTE | 2019-03-20 19:15 | NUR ---
PATIENT DENIES HEADACHE, DIZZINESS, SOB, NAUSEA AND CHEST PAIN AT THIS TIME. ENDORSED TO NOC RN FOR CHELLE.
--- NOTE | 2019-03-20 19:15 | NUR ---
ENDORSED TO NOC RN THAT BP IS 151/99, HR 101.
--- NOTE | 2019-03-20 20:00 | NUR ---
RN INITIAL NOTES PATIENT IN BED AWAKE, RESTING COMFORTABLY AT THIS TIME. NO S/S OF ACUTE DISTRESS NOTED. RESP EVEN AND UNLABORED. PATENT A/O X2-3 , ABLE TO MAKE NEEDS KNOWN. DENIES ANY PAIN OR DISCOMFORT AT THIS TIME. SKIN IS DRY WARM TO TOUCH. IV ACCESS ON THE RIJ INTACT AND PATENT. FLUSHING WELL. NO S/S OF INFECTION NOTED AT THE SITE. WAGONER CATH IN PLACE, PATENT, DRAINING CLEAR YELLOW URINE. SAFETY MAINTAINED, BED AT THE LOWEST SETTINGS, LOCKED. CALL LIGHT WITHIN REACH. WILL CONTINUE TO MONITOR.
[2019-03-21] VITALS: BP 163/90
[2019-03-21] MEDS: DIGOXIN INJ 0.5 MG/2 ML AMPUL IV SCH
--- NOTE | 2019-03-21 | NUR ---
RN NOTES DIGOXIN HELD, PT HAD LOW B/P
[2019-03-21] MEDS: METOPROLOL TARTRATE 25 MG TABLET PO SCH ×4 (00:12→17:33)
[2019-03-21] MEDS: BLOOD SUGAR DIAGNOSTIC 1 EACH STRIP IN SCH ×4 (00:17→17:29)
[2019-03-21 04:00] VITALS: BP 158/79
[2019-03-21 06:23] LABS: BASOPHILS % (AUTO) 0.5 % (0.0-2.0); EOSINOPHILS % (AUTO) 1.5 % (0.0-6.0); HEMATOCRIT 24 % (33-45); LYMPHOCYTES % (AUTO) 21.8 % (20.0-44.0); MEAN CORPUSCULAR HGB CONC 33 g/dl (31.0-36.0); MEAN CORPUSCULAR VOLUME 87 fL (82-100); MONOCYTES # (AUTO) 0.7 /CMM (0.1-1.30); MONOCYTES % (AUTO) 15.5 % (2.0-12.0); NEUTROPHILS # (AUTO) 2.7 /CMM (1.8-8.9); NEUTROPHILS % (AUTO) 60.7 % (43.0-81.0); PLATELET COUNT (AUTO) 65 /CMM (150-450); RED BLOOD CELL COUNT(AUTO) 2.79 MIL/uL (4.0-5.2); WHITE BLOOD COUNT (AUTO) 4.4 K/uL (4.3-11.0)
[2019-03-21 06:31] LABS: ALBUMIN 2.2 g/dL (3.4-5.0); BILIRUBIN,TOTAL 1.6 mg/dL (0.2-1.0); CALCIUM, SERUM 7.6 mg/dL (8.5-10.1); CREATININE 1.3 mg/dL (0.6-1.3); MAGNESIUM 1.5 mg/dL (1.8-2.4); PHOSPHORUS 2.6 mg/dL (2.5-4.9); POTASSIUM 3.8 mmol/L (3.5-5.1); TOTAL PROTEIN, SERUM 4.4 g/dL (6.4-8.2)
[2019-03-21 07:30] LABS: BAND % (MANUAL) 2 % (0.0-5.0); EOSINOPHILS % (MANUAL) 2 % (0-4); LYMPHOCYTES % (MANUAL) 20 % (16-48); MONOCYTES % (MANUAL) 13 % (0-11.0); NEUTROPHILS % (MANUAL) 63 (42-76)
--- NOTE | 2019-03-21 07:30 | NUR ---
VENEER MEASURER INITIAL NOTES RECEIVED PT IN BED, A/OX2. ON TELE SB 40'S - 50'S. ASYMPTOMATIC. PT NO C/O PAIN. ON 2L NC O2 SAT WNL. F/C IN PLACE. RIJ IN PLACE SL. BED IN LOCKED/LOWEST POSITION. CALL LIGHT IN REACH. WILL CONT TO MONITOR.
--- NOTE | 2019-03-21 07:40 | NUR ---
RN CLOSING NOTES PT WENT FROM [facility] TO SR TO SB ON TELE MONITOR. PT WAS WEAK AND LETHARGIC OVER NIGHT. WILL ENDORSE TO AM RN.
[2019-03-21 08:00] VITALS: BP 157/80
[2019-03-21] MEDS: MYCOPHENOLATE MOFETIL 250 MG CAPSULE PO SCH ×2 (08:26→17:32)
[2019-03-21] MEDS: CALCIUM ACETATE 667 MG TABLET PO SCH ×3 (08:28→17:31)
[2019-03-21] MEDS: ACYCLOVIR 200 MG CAPSULE PO SCH (08:29)
[2019-03-21] MEDS: ALLOPURINOL 100 MG TABLET PO SCH (08:30)
[2019-03-21] MEDS: PANTOPRAZOLE 40 MG TABLET.DR PO SCH (08:31)
[2019-03-21] MEDS: HYDROGEL DRESSING 90 GM TUBE TP PRN (08:32)
[2019-03-21] MEDS: HYDROCORTISONE SOD SUCCINATE 100 MG/2 ML VIAL IV SCH (08:32)
[2019-03-21] MEDS: HYDROGEL DRESSING 90 GM TUBE TP SCH (08:33)
[2019-03-21] MEDS: METOLAZONE 2.5 MG TABLET PO SCH (10:59)
[2019-03-21] MEDS: FUROSEMIDE 100 MG/10 ML VIAL IV SCH ×3 (11:00→17:29)
[2019-03-21] MEDS: POTASSIUM CHLORIDE 20 MEQ TAB.PRT.SR PO SCH ×3 (11:00→13:15)
[2019-03-21] MEDS: Magnesium 1GM/D5W 100ML PREMIX 100 ML IV SCH ×2 (11:50→13:15)
[2019-03-21 16:00] VITALS: BP 132/80
--- NOTE | 2019-03-21 18:54 | NUR ---
MS RN END OF SHIFT NOTES PT STABLE, BED IN LOCKED/LOWEST POSITION. CALL LIGHT IN REACH. WILL ENDORSE TO PM NURSE FOR CHELLE.
--- NOTE | 2019-03-21 19:15 | NUR ---
MS RN NOTE PATIENT IN BED SLEEPING, EASILY AWOKEN. PATIENT A/OX 3. PATIENT DENIES CHEST PAIN/SOB. JUST EXPRESSES WISHES TO SLEEP. PATIENT HAS NO C/O PAIN OR DISCOMFORT AT THIST [place]. PATIENT IN NC 2L . RIJ PATENT INTACT NO S.S OF INFECTION/ INFILTRATION. CALL LIGHT WITHIN REACH, SIDE RAILS UP X 3. RN WILL CONTINUE TO MONITOR.
[2019-03-21 20:00] VITALS: BP 165/81
--- NOTE | 2019-03-22 00:05 | NUR ---
MS RN NOTE PATIENT HR CHECKED APICALLY, PATIENT HR 42 ASYMPTOMATIC WILL HOLD METOPROLOL AWARE
[2019-03-22] MEDS: BLOOD SUGAR DIAGNOSTIC 1 EACH STRIP IN SCH ×4 (00:53→18:00)
[2019-03-22 04:00] VITALS: BP 154/78
[2019-03-22] MEDS: METOPROLOL TARTRATE 25 MG TABLET PO SCH ×4 (06:00→18:00)
--- NOTE | 2019-03-22 06:04 | NUR ---
MS RN NOTE PATIENT 0600 BLOOD SUGAR 72. GAVE PATIENT APPLE JUICE AND ENCOURAGE PATIENT TO EAT. PATIENT EXPRESSES FEAR IN EATING BECAUSE SHE DOESN'T LIKE TO POOP. RN ACKNOWLEDGED PATIENT DISCOMFORT AND VALIDATED FEELINGS. EDUCATED PATIENT ON IMPORTANCE OF EATING AND MAINTAINING HEALTHY BLOOD SUGAR LEVEL.
[2019-03-22 07:00] LABS: BASOPHILS % (AUTO) 0.7 % (0.0-2.0); EOSINOPHILS % (AUTO) 1.4 % (0.0-6.0); HEMATOCRIT 28 % (33-45); HEMOGLOBIN 9.1 g/dL (11.5-14.8); LYMPHOCYTES # (AUTO) 0.9 /CMM (0.8-4.8); LYMPHOCYTES % (AUTO) 22.7 % (20.0-44.0); MEAN CORPUSCULAR HGB CONC 33 g/dl (31.0-36.0); MEAN CORPUSCULAR VOLUME 87 fL (82-100); MONOCYTES # (AUTO) 0.8 /CMM (0.1-1.30); MONOCYTES % (AUTO) 19.2 % (2.0-12.0); NEUTROPHILS # (AUTO) 2.2 /CMM (1.8-8.9); PLATELET COUNT (AUTO) 73 /CMM (150-450); RED BLOOD CELL COUNT(AUTO) 3.17 MIL/uL (4.0-5.2); WHITE BLOOD COUNT (AUTO) 3.9 K/uL (4.3-11.0)
[2019-03-22 07:42] LABS: ALBUMIN 2.6 g/dL (3.4-5.0); BILIRUBIN,TOTAL 1.7 mg/dL (0.2-1.0); CALCIUM, SERUM 8.2 mg/dL (8.5-10.1); CREATININE 1.4 mg/dL (0.6-1.3); MAGNESIUM 1.7 mg/dL (1.8-2.4); PHOSPHORUS 2.8 mg/dL (2.5-4.9); POTASSIUM 4.7 mmol/L (3.5-5.1); TOTAL PROTEIN, SERUM 5.2 g/dL (6.4-8.2)
[2019-03-22 08:00] VITALS: BP 137/71
[2019-03-22 08:14] LABS: LYMPHOCYTES % (MANUAL) 23 % (16-48); MONOCYTES % (MANUAL) 11 % (0-11.0); NEUTROPHILS % (MANUAL) 66 (42-76)
[2019-03-22] MEDS: CALCIUM ACETATE 667 MG TABLET PO SCH ×3 (08:22→18:03)
[2019-03-22] MEDS: MYCOPHENOLATE MOFETIL 250 MG CAPSULE PO SCH ×2 (08:24→16:54)
[2019-03-22] MEDS: HYDROCORTISONE SOD SUCCINATE 100 MG/2 ML VIAL IV SCH (08:28)
[2019-03-22] MEDS: METOLAZONE 2.5 MG TABLET PO SCH (08:29)
[2019-03-22] MEDS: ALLOPURINOL 100 MG TABLET PO SCH (08:29)
[2019-03-22] MEDS: PANTOPRAZOLE 40 MG TABLET.DR PO SCH (08:29)
[2019-03-22] MEDS: ACYCLOVIR 200 MG CAPSULE PO SCH (08:31)
[2019-03-22] MEDS: HYDROGEL DRESSING 90 GM TUBE TP PRN (08:32)
[2019-03-22] MEDS: HYDROGEL DRESSING 90 GM TUBE TP SCH (09:00)
[2019-03-22] MEDS: Magnesium 1GM/D5W 100ML PREMIX 100 ML IV SCH ×2 (11:04→12:02)
[2019-03-22 12:00] VITALS: BP 128/52
[2019-03-22 16:00] VITALS: BP 135/74
[2019-03-22 20:00] VITALS: BP 147/79
[2019-03-23] VITALS: BP 139/80
[2019-03-23] MEDS: METOPROLOL TARTRATE 25 MG TABLET PO SCH ×3 (00:27→13:38)
[2019-03-23] MEDS: BLOOD SUGAR DIAGNOSTIC 1 EACH STRIP IN SCH ×3 (00:27→12:10)
[2019-03-23 04:00] VITALS: BP 140/80
[2019-03-23 04:15] VITALS: BP 140/80
--- NOTE | 2019-03-23 07:37 | NUR ---
MS RN NOTES PT IN BE SLEEPING BUT EASILY AWOKEN VERBALLY OR BY TOUCH. PT A/O X3 AND ABLE TO MAKE NEEDS KNOWN. RESPIRATIONS EVEN AND UNLABORED WITH NO S/S OF ACUTE DISTRESS OR SOB NOTED. NO COMPLAINTS OF PAIN AT THIS TIME. SAFETY MEASURES IN PLACE WITH BED IN LOWEST LOCKED POSITION WITH SIDE RAILS UP X2. CALL LIGHT WITHIN REACH. WILL ENDORSE TO ONCOMING NURSE FOR CHELLE.
[2019-03-23 08:00] VITALS: BP 147/74
--- NOTE | 2019-03-23 08:00 | NUR ---
m/s office communication professor: initial assessment received pt in bed awake, a/ox3. no c/o sob, chest pain, or any discomfort. vss. instructed to call for assistance. will continue to monitor.
[2019-03-23] MEDS: CALCIUM ACETATE 667 MG TABLET PO SCH ×2 (08:38→13:37)
[2019-03-23] MEDS: PANTOPRAZOLE 40 MG TABLET.DR PO SCH (08:38)
[2019-03-23] MEDS: ALLOPURINOL 100 MG TABLET PO SCH (08:39)
[2019-03-23] MEDS: ACYCLOVIR 200 MG CAPSULE PO SCH (08:39)
[2019-03-23] MEDS: MYCOPHENOLATE MOFETIL 250 MG CAPSULE PO SCH ×2 (08:39→16:23)
[2019-03-23] MEDS: METOLAZONE 2.5 MG TABLET PO SCH (08:39)
[2019-03-23] MEDS: HYDROCORTISONE SOD SUCCINATE 100 MG/2 ML VIAL IV SCH (09:35)
--- NOTE | 2019-03-23 10:00 | NUR ---
m/s building maintenance mechanic: notes p.t. at bedside for tx.
[2019-03-23] MEDS ORDERED: METO2.5T7 PO (10:03)
[2019-03-23] MEDS ORDERED: Calcium Acetate PO (10:03)
[2019-03-23] MEDS ORDERED: ACYC200C PO (10:03)
[2019-03-23 11:17] LABS: BASOPHILS % (AUTO) 0.5 % (0.0-2.0); EOSINOPHILS % (AUTO) 1.7 % (0.0-6.0); HEMATOCRIT 25 % (33-45); HEMOGLOBIN 8.1 g/dL (11.5-14.8); LYMPHOCYTES # (AUTO) 0.9 /CMM (0.8-4.8); LYMPHOCYTES % (AUTO) 27.8 % (20.0-44.0); MEAN CORPUSCULAR HGB CONC 33 g/dl (31.0-36.0); MEAN CORPUSCULAR VOLUME 87 fL (82-100); MONOCYTES # (AUTO) 0.6 /CMM (0.1-1.30); NEUTROPHILS # (AUTO) 1.8 /CMM (1.8-8.9); PLATELET COUNT (AUTO) 70 /CMM (150-450); RED BLOOD CELL COUNT(AUTO) 2.82 MIL/uL (4.0-5.2); WHITE BLOOD COUNT (AUTO) 3.3 K/uL (4.3-11.0)
[2019-03-23 11:27] LABS: CALCIUM, SERUM 8.2 mg/dL (8.5-10.1); CREATININE 1.2 mg/dL (0.6-1.3); POTASSIUM 3.6 mmol/L (3.5-5.1)
--- NOTE | 2019-03-23 11:30 | NUR ---
m/s technical maintenance specialist: notes at bedside at this time and made aware re: d'c today at [facility]. also asked about pt's right lower eye discoloration and informed me that she was born with it like a birthmark as stated.
[2019-03-23 11:32] LABS: ALBUMIN 2.4 g/dL (3.4-5.0); BILIRUBIN,TOTAL 1.5 mg/dL (0.2-1.0); PHOSPHORUS 2.7 mg/dL (2.5-4.9); TOTAL PROTEIN, SERUM 4.8 g/dL (6.4-8.2)
--- NOTE | 2019-03-23 12:00 | NUR ---
m/s commissary manager: notes lunch served. hob elevated. family at bedside. instructed to call for assistance. will monitor.
[2019-03-23 13:38] VITALS: BP 102/62
[2019-03-23] MEDS: HYDROGEL DRESSING 90 GM TUBE TP SCH (13:40)
--- NOTE | 2019-03-23 15:15 | NUR ---
m/s neurology stroke physician: notes discharge instructions given to and listening to instructions. and verbalized understanding. all questions and concerns answered. awaiting for ambulance to pick her up. all belongings returned. instructed to call for assistance. will continue to monitor.
--- NOTE | 2019-03-23 15:30 | NUR ---
m/s mock up maker: notes report given to may (rn electronic gaming device supervisor) at [facility] for continuity of care.
--- NOTE | 2019-03-23 15:40 | NUR ---
m/s quality control manager: notes dr. vergara notified and clarify if he wants to keep right ij tlc with order to remove it. order read back and carried out.
--- NOTE | 2019-03-23 15:45 | NUR ---
m/s soil biology teacher: notes right ij tlc removed by rn with tip intact with another nurse as a witnessed with 2 stitches with minimal bleeding noted. pressure dressing applied for 5 minutes.
--- NOTE | 2019-03-23 16:20 | NUR ---
m/s reel fed printer: notes left at this time. brother at bedside and will wait for the ambulance. will continue to monitor.
--- NOTE | 2019-03-23 16:45 | NUR ---
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 pt made aware. dressing to right neck intact with no active bleeding noted. brother at bedside. will continue to monitor.
--- NOTE | 2019-03-23 16:57 | NUR ---
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
--- NOTE | 2019-03-23 17:00 | NUR ---
m/s prison librarian: notes assessed dressing to right neck, no active bleeding noted. pt getting ready for discharge.
--- NOTE | 2019-03-23 17:05 | NUR ---
m/s family service aide: discharged discharged to snf via ambulance gurney accompanied by 2 crew in stable condition.
== END 2019-03-23 17:05 | DRG 720 ==
LOC: ER 03:02 → ICU 07:15 → TELE1 03-14 11:51 → MEDSG1 03-15 10:25 → TELE1 03-18 20:20 → MEDSG1 03-19 18:41 → TELE1 03-20 12:54 → MEDSG1 03-21 10:37
PROVIDERS: ADMIT Nurse Practitioner Acute Care; ATTEND Nurse Practitioner Acute Care
PROC: 5A1955Z Respiratory Ventilation, Greater than 96 Consecutive Hours (ICD-10-PCS; principal; 2019-03-04)
PROC: B543ZZA Ultrasonography of Right Jugular Veins, Guidance (ICD-10-PCS; principal; 2019-03-04)
PROC: 05HM33Z Insertion of Infusion Device into Right Internal Jugular Vein, Percutaneous Approach (ICD-10-PCS; principal; 2019-03-04)
PROC: 0BH17EZ Insertion of Endotracheal Airway into Trachea, Via Natural or Artificial Opening (ICD-10-PCS; principal; 2019-03-04)
PROC: 0BJ08ZZ Inspection of Tracheobronchial Tree, Via Natural or Artificial Opening Endoscopic (ICD-10-PCS; 2019-03-06)
PROC: 30233N1 Transfusion of Nonautologous Red Blood Cells into Peripheral Vein, Percutaneous Approach (ICD-10-PCS; 2019-03-06)
PROC: 06H03DZ Insertion of Intraluminal Device into Inferior Vena Cava, Percutaneous Approach (ICD-10-PCS; 2019-03-17)
PROC: 0DJ08ZZ Inspection of Upper Intestinal Tract, Via Natural or Artificial Opening Endoscopic (ICD-10-PCS; 2019-03-19)
DX: A41.9 Sepsis, unspecified organism (principal); J96.01 Acute respiratory failure with hypoxia; N17.0 Acute kidney failure with tubular necrosis; R65.21 Severe sepsis with septic shock; G72.81 Critical illness myopathy; E43 Unspecified severe protein-calorie malnutrition; D61.818 Other pancytopenia; J18.9 Pneumonia, unspecified organism; R64 Cachexia; G92 Toxic encephalopathy; D84.9 Immunodeficiency, unspecified; I13.2 Hypertensive heart and chronic kidney disease with heart failure and with stage 5 chronic kidney disease, or end stage renal disease; I50.33 Acute on chronic diastolic (congestive) heart failure; D68.69 Other thrombophilia; N18.9 Chronic kidney disease, unspecified; Z94.0 Kidney transplant status; I82.413 Acute embolism and thrombosis of femoral vein, bilateral; E87.1 Hypo-osmolality and hyponatremia; I25.10 Atherosclerotic heart disease of native coronary artery without angina pectoris; Z79.899 Other long term (current) drug therapy; D89.9 Disorder involving the immune mechanism, unspecified; T86.12 Kidney transplant failure; I48.91 Unspecified atrial fibrillation; D63.8 Anemia in other chronic diseases classified elsewhere; K21.9 Gastro-esophageal reflux disease without esophagitis; E87.2 Acidosis; E16.2 Hypoglycemia, unspecified; D12.4 Benign neoplasm of descending colon; E78.5 Hyperlipidemia, unspecified; E83.39 Other disorders of phosphorus metabolism; E83.51 Hypocalcemia; E86.1 Hypovolemia; E87.6 Hypokalemia; I70.0 Atherosclerosis of aorta; I31.3 Pericardial effusion (noninflammatory); J98.11 Atelectasis; K57.30 Diverticulosis of large intestine without perforation or abscess without bleeding; N18.6 End stage renal disease; Z79.01 Long term (current) use of anticoagulants; Z68.1 Body mass index [BMI] 19.9 or less, adult; K44.9 Diaphragmatic hernia without obstruction or gangrene; K29.70 Gastritis, unspecified, without bleeding; R17 Unspecified jaundice; R19.7 Diarrhea, unspecified; I07.1 Rheumatic tricuspid insufficiency; D69.6 Thrombocytopenia, unspecified; Z74.09 Other reduced mobility
CPT/HCPCS: 31623; 31720; 36415; 36600; 71045-TC; 72170-TC; 73020; 74018; 76700-TC; 80048-TC; 80053-TC; 80061-TC; 80076-TC; 80158; 81000-TC; 82272-TC; 82378; 82570-TC; 82728-TC; 82784; 82803-TC; 82962-TC; 83540-TC; 83605-TC; 83735-TC; 83880; 84100-TC; 84132-TC; 84155; 84155-TC; 84165; 84300-TC; 84443-TC; 84478-TC; 84484-TC; 85025-TC; 85027-TC; 85610-TC; 85730-TC; 86022; 86334; 86360; 86850-TC; 86921-TC; 87040-TC; 87070-TC; 87081-TC; 87086-TC; 87102-TC; 87116; 87206; 87281; 93307-TC; 93970-TC; 94002-TC; 94003-TC; 94760-TC; 94799-TC; 96379; 97110-TC; 97112-TC; 97116-TC; 97530-TC; A4216; A4217; A6248; A6403; C1751; C1769; C1880; G0378; J0282; J0330; J0610; J0690; J0692; J1100; J1160; J1644; J1720; J1940; J2248; J2250; J2370; J2405; J2543; J2704; J3010; J3370; J3475; J3480; J3490; J7030; J7040; J7050; J7060; J7502; J7515; J7517; P9016-BL; P9047; Q9967